=== PATIENT | male | born 1950 | race Caucasian/White ===

== ENCOUNTER 2016-11-28 10:22 | Emergency (ER) | payer BC, MEDICARE, OTHER ==
--- OUTSIDE RECORDS SUMMARY | 2016-11-28 11:00 | XMS REPORT | Continuity of Care Document ---
:1950 Author Organization [facility] ([facility]) Address [address] [place] [address] Phone [phone] Care Team Providers Name Role Phone Provider, No-Primary Care Primary Care Provider Unavailable Source Comments This disclosure is being made pursuant to the Care Everywhere program, applicable federal and state laws, and may not contain all informaitonavailable regarding this patient.[facility] ([facility]) Active Allergies and Adverse Reactions Not on File Current Medications Not on file Active Problems Not on file Social History Tobacco Use Types Packs/Day Years Used Date Never Assessed Plan of Care Health Maintenance Due Date Last Done Comments HCV Screening 1950 Hepatitis B Vaccine (1 of 3 - Primary Series) 1950 Tdap Vaccine 1960 Lipid Disorder Screening 1967 Td Vaccine 1967 Colonoscopy 1999 Prostate Cancer Screening 1999 Zoster Vaccine 2009 Pneumococcal Vaccine (1 of 2 - PCV13) 2014 Influenza Vaccine: Seasonal (#1) 04/23/2016 Results from Last 3 Months Not on file
--- NOTE | 2016-11-28 11:20 | ERNOTE ---
Upper Extremity HPI - Narrative Date of Service: 11/28/16 - General Extremities Pain Location: shoulder: right, elbow: right, hand: right Time Seen by Provider: 11/28/16 10:44 Source: patient Exam Limitations: no limitations - Immun/Allergies/Home Medications Immunizations: IMMUNIZATION HX Immunizations Up to Date Yes Allergies/Adverse Reactions: Allergies Allergy/AdvReac Type Severity Reaction Status Date / Time No Known Allergies Allergy Verified 11/28/16 10:37 Home Medications: HOME MEDICATIONS [place]-3 Fatty Acids [Fish Oil] 1,000 mg PO DAILY 08/30/12 [Last Taken Unknown] Tiotropium [place] [Spiriva] 1 cap IH DAILY 08/30/12 [Last Taken Unknown] Warfarin Sodium [Coumadin] 2.5 mg PO DAILY 08/30/12 [Last Taken 05/16/16] Albuterol Sulfate [Proair Hfa] 2 puff IH Q4H PRN 05/03/14 [Last Taken Unknown] Metoprolol Tartrate [Lopressor] 150 mg PO BID 06/26/14 [Last Taken 05/21/16 07: 00] Acetaminophen [Tylenol] 500 - 1,000 mg PO Q6H PRN 05/11/16 [Last Taken Unknown] Fexofenadine HCl [Dania Allergy] 180 mg PO DAILY 05/11/16 [Last Taken Unknown] Fluticasone Propionate [Flonase Allergy Relief] 1 puff NS DAILY 05/11/16 [Last Taken Unknown] Furosemide [Lasix] 40 mg PO BID 05/11/16 [Last Taken Unknown] Multivitamins [Multivitamin Jennifer] 1 cap PO DAILY 05/11/16 [Last Taken Unknown] oxyCODONE HCL/ACETAMINOPHEN [Percocet 5 MG/325 MG] 1 - 2 tab PO Q4H PRN #30 tab 05/21/16 [Last Taken Unknown] Prednisone [Deltasone] 20 mg PO BID #10 tablet 11/28/16 [Last Taken Unknown] traMADol HCL [Ultram] 50 mg PO QID PRN #20 tablet 11/28/16 [Last Taken Unknown] - History of Present Illness Narrative: Miguel presents with a host of problems most of them are chronic in nature. He has recently been seen by his physician and complains of pain in his right hand , right elbow, right shoulder and both knees. Most of these joints he receives injections in do is just frustrated with the inability to get a handle on the pain. He is worried that the chronic pain in his right arm is from his heart. Occurred: other - chronic Severity: moderate Method of Injury: Reports: no apparent injury Other Injuries: Reports: none Prior Treament: Reports: recently seen Review of Systems - Review of Systems Constitutional: Present: See HPI EYE: Present: no symptoms reported ENT: Present: no symptoms reported Respiratory: Present: no symptoms reported Cardiology: Present: no symptoms reported Gastrointestinal/Abdominal: Present: no symptoms reported Genitourinary: Present: no symptoms reported Musculoskeletal: Present: See HPI, joint pain Skin: Present: no symptoms reported Neurological: Present: no symptoms reported Endocrine: Present: no symptoms reported Hematologic/Lymphatic: Present: no symptoms reported Psych: Present: no symptoms reported - Patient's Past Medical History Patient History - Medical: No pertinent hx, Other Patient History - Cardiac/Respiratory: Atrial Fibrillation, COPD, Hypertension, Hyperlipidemia Patient History - Cancer: No Hx of Cancer Patient History - Surgical Procedures: No surgical history, T & A, Other Patient History - Other: None - Family History Father Family History - Medical: , No pertinent hx Family History - Cardiac/Respiratory: Coronary Heart Disease, Myocardial Infarction Mother Family History - Medical: , No pertinent hx Family History - Cardiac/Respiratory: No pertinent hx - Social History Living Situations: home Abuse History: No History of abuse Psych History: No pertinent hx Smoking Status: Current every day smoker Alcohol Use: none Drug Use: none - Immunizations Immunizations Up to Date: Yes Physical Exam - Physical Exam General Appearance: Present: wd/wn, alert, moderate distress Eye Exam: Normal inspection: bilateral, PERRL: bilateral Ears, Nose, Throat: Present: normal ENT inspection, H, normal pharynx Neck: Present: normal inspection, nontender Respiratory: Present: no respiratory distress, normal breath sounds, no accessory muscle use, chest nontender, lungs clear Cardiovascular/Chest: Present: regular rate, rhythm, no murmur, normal peripheral pulses Gastrointestinal/Abdominal: Present: normal bowel sounds, nontender, nondistended, soft, no organomegaly Rectal Exam: Present: deferred Back Exam: Present: normal inspection, normal range of motion Extremity Exam: Present: no edema, decreased range of motion, other - generalized joint tenderness Neurological Exam: Present: alert, oriented, normal mood/affect Skin Exam: Present: normal color, warm/dry Lymphatic Exam: Present: no adenopathy ED Progress - Results and Orders Patient's Lab Results:: I have reviewed the patient's lab results. - Vital Signs Patient's Vital Signs:: I have reviewed the patient's vital signs. Vital Signs: Vital Signs 11/28/16 10:31 Temperature 36.2 C L Pulse Rate 86 Respiratory 12 Rate Blood Pressure 172/96 O2 Sat by Pulse 93 Oximetry - EKG EKG: atrial fibrillation - X-Ray X-Ray #1 X-Ray: chest Interpretation: Reviewed by me X-Ray #2 X-Ray: hand Interpretation: Reviewed by me - Progress/Reassessment Chief Complaint: Upper Extremity Injury/Problem Progress:: Unchanged - Transfer of Care Expected Disposition: Discharge Plan - Plan Plan: Generalized be somewhat difficult to treat as chronic pain is always a difficult thing to manage. The fact that we have an elevated CRP and elevated sedimentation rate and I think we have entertained some Of the mixed connective tissue disease or possibly polymyalgia rheumatica. I have given him initial steroid dose of 60 mg by mouth we'll start 20 mg twice a day for 5 days. On follow up with Dr. Busby at that point to see whether chronic steroid use be applicable for him. Also start him on tramadol 50 mg 4 times a day for 5 days as well and see if this also buys him any relief from his chronic pain. Departure Clinical Impression: Chronic pain disorder - Departure Disposition: Home self-care Condition: Good Instructions: Chronic Pain Referrals: Cynthia Busby MD [Primary Care Provider] - Prescriptions: Prednisone [Deltasone] 20 mg PO BID #10 tablet traMADol HCL [Ultram] 50 mg PO QID PRN #20 tablet PRN Reason: Moderate Pain
[2016-11-28 11:26] LABS: Urine Bilirubin Negative (NEGATIVE); Urine Blood 50 /ul (NEGATIVE); Urine Ketone Negative (NEGATIVE); Urine Nitrite Negative (NEGATIVE); Urine Protein Negative (NEGATIVE); Urine Specific Gravity 1.015 SP.GR. (1.005-1.030); Urine Urobilinogen Normal (NORMAL)
[2016-11-28 11:33] LABS: Hematocrit 50.4 % (42.0-52.0); Hemoglobin 16.8 gm/dL (13.5-18.0); Mean Cell Volume 89.2 fl (78-100); Mean Corpuscular Hemoglobin 29.7 pg (27-31); Mean Corpuscular Hgb Conc 33.3 g/dl (32-36); Mean Platelet Volume 9.7 fl (6.0-9.5); Neutrophil # 6.9 K/mm3 (1.3-6.0); Neutrophil % 63.1 % (42-75.0); Platelet Count 263 K/mm3 (150-450); Red Blood Count 5.65 M/mm3 (4.7-6.0); Red Cell Distribution Width 14.3 % (11.5-14.0); White Blood Count 10.9 K/mm3 (4.0-10.5)
[2016-11-28 11:42] LABS: Prothrombin Time (Patient) 47.6 Seconds (9.4-11.4)
[2016-11-28 11:45] LABS: Urine Appearance Clear; Urine Bacteria TRACE; Urine Color Yellow; Urine RBC 0-5 /hpf (0-5); Urine WBC 0-5 /hpf (0-5)
[2016-11-28 11:55] LABS: ALT 22 U/L (19-67); AST 19 U/L (0-48); Albumin * 3.5 gm/dl (3.4-5.0); Alkaline Phosphatase * 124 U/L (50-170); BNP * 643 pg/mL (5-350); BUN/Creatinine Ratio 11.4 (9.0-21.6); Bilirubin, Total 1.2 mg/dL (0.0-1.1); Blood Urea Nitrogen 13 mg/dL (6-23); CRP 3.4 mg/dL (0.0-0.9); Ca. Corrected For Albumin 9.5 mg/dL (8.4-10.2); Calcium * 9.4 mg/dL (7.9-10.9); Carbon Dioxide 38.3 mmol/L (24-32.6); Chloride 101 mmol/L (97-106); Glucose * 89 mg/dL (70-110); Magnesium 1.7 mg/dL (1.2-2.8); Potassium 3.3 mmol/L (3.4-4.6); Sodium 145 mmol/L (132-142); Total Protein 8.1 gm/dL (6.2-8.2); Troponin I Less than 0.017 ng/ml (0.00-0.10)
[2016-11-28 12:00] LABS: INR 4.58 INR (0.90-1.10)
[2016-11-28] MEDS ORDERED: predniSONE 20 MG TABLET ONE (13:25)
[2016-11-28] MEDS: predniSONE 20 MG TABLET PO ONE (13:28)
[2016-11-28 13:51] VITALS: BP 122/79
== END 2016-11-28 13:30 | disposition home or self-care (01) ==
LOC: ER 10:22
DX: G89.4 Chronic pain syndrome (principal); M79.641 Pain in right hand; M25.521 Pain in right elbow; M25.511 Pain in right shoulder; M25.562 Pain in left knee; M25.561 Pain in right knee; F17.210 Nicotine dependence, cigarettes, uncomplicated

== ENCOUNTER 2017-02-27 07:54 | Emergency (ER) | payer BC, MEDICARE, OTHER ==
[2017-02-27 08:03] VITALS: BP 154/98
--- OUTSIDE RECORDS SUMMARY | 2017-02-27 08:22 | XMS REPORT | Continuity of Care Document ---
:1950 Author Organization [facility] ([facility]) Address [address] [place] [address] Phone [phone] Care Team Providers Name Role Phone Provider, No-Primary Care Primary Care Provider Unavailable Source Comments This disclosure is being made pursuant to the Care Everywhere program, applicable federal and state laws, and may not contain all informaitonavailable regarding this patient.[facility] ([facility]) Active Allergies and Adverse Reactions Not on [...]
--- NOTE | 2017-02-27 08:37 | ERNOTE ---
ENT HPI Presenting Symptoms: other Time Seen by Provider: 02/27/17 08:12 Source: patient Exam Limitations: no limitations - Immun/Allergies/Home Medications Immunizations: IMMUNIZATION HX Immunizations Up to Date Yes History of Influenza Vaccine No Hx Pneumococcal Vaccination No Allergies/Adverse Reactions: Allergies Allergy/AdvReac Type Severity Reaction Status Date / Time No Known Allergies Allergy Verified 02/27/17 08:03 Home Medications: HOME MEDICATIONS [place]-3 Fatty Acids [Fish Oil] 1,000 mg PO DAILY 08/30/12 [Last Taken Unknown] Tiotropium [place] [Spiriva] 1 cap IH DAILY 08/30/12 [Last Taken Unknown] Warfarin Sodium [Coumadin] 2.5 mg PO DAILY 08/30/12 [Last Taken 05/16/16] Albuterol Sulfate [Proair Hfa] 2 puff IH Q4H PRN 05/03/14 [Last Taken Unknown] Metoprolol Tartrate [Lopressor] 150 mg PO BID 06/26/14 [Last Taken 05/21/16 07: 00] Acetaminophen [Tylenol] 500 - 1,000 mg PO Q6H PRN 05/11/16 [Last Taken Unknown] Fexofenadine HCl [Dania Allergy] 180 mg PO DAILY 05/11/16 [Last Taken Unknown] Fluticasone Propionate [Flonase Allergy Relief] 1 puff NS DAILY 05/11/16 [Last Taken Unknown] Furosemide [Lasix] 40 mg PO BID 05/11/16 [Last Taken Unknown] Multivitamins [Multivitamin Jennifer] 1 cap PO DAILY 05/11/16 [Last Taken Unknown] Bupropion HCl [Wellbutrin Sr] 150 mg PO DAILY 11/28/16 [Last Taken Unknown] buPROPion HCL [Wellbutrin XL] 150 mg PO DAILY 11/29/16 [Last Taken Unknown] - History of Present Illness Narrative: Patient started to have bleeding from his left ear yesterday afternoon. He is not aware of any injuries, did not scatch the ear. He denies any bleeding elsewhere. He is on coumadin for atrial fibrillation, had his INR checked yesterday and it was therapeutic, denies any other new symptoms Date (Duration): 02/26/17 ENT Location: Present: ear (L) Review of Systems - Review of Systems Constitutional: Absent: recent illness, fever ENT: Present: See HPI. Absent: ear discharge, sore throat Respiratory: Present: shortness of breath - at baseline, COPD. Absent: cough Cardiology: Absent: chest pain Gastrointestinal/Abdominal: Absent: nausea, vomiting, abdominal pain Genitourinary: Present: no symptoms reported. Absent: hematuria Neurological: Present: headache - slight. Absent: weakness, numbness Hematologic/Lymphatic: Absent: easy bruising, easy bleeding - Patient's Past Medical History Patient History - Medical: No pertinent hx Patient History - Cardiac/Respiratory: Atrial Fibrillation, COPD, Hypertension, Hyperlipidemia Patient History - Cancer: No Hx of Cancer Patient History - Surgical Procedures: No surgical history, T & A, Other Patient History - Other: None - Family History Father Family History - Medical: , No pertinent hx Family History - Cardiac/Respiratory: Coronary Heart Disease, Myocardial Infarction Mother Family History - Medical: , No pertinent hx Family History - Cardiac/Respiratory: No pertinent hx - Social History Living Situations: home Abuse History: No History of abuse Psych History: No pertinent hx Smoking Status: Current some day smoker Have you smoked in the past 12 months: Yes Alcohol Use: occasionally Drug Use: none - Immunizations Immunizations Up to Date: Yes Hx Pneumococcal Vaccination: No History of Influenza Vaccine: No Physical Exam - Physical Exam General Appearance: Present: wd/wn, alert, no apparent distress Ears, Nose, Throat: Present: normal except - - left ear drum normal, small amout of fresh blood in ear canal, pooling on outside, normal pharynx Respiratory: Present: no respiratory distress, lungs clear Cardiovascular/Chest: Present: regular rate, rhythm, no murmur Neurological Exam: Present: alert, oriented, normal mood/affect ED Progress - Vital Signs Patient's Vital Signs:: I have reviewed the patient's vital signs. Vital Signs: Vital Signs 02/27/17 07:59 Temperature 36.0 C L Pulse Rate 70 Respiratory 16 Rate Blood Pressure 154/98 O2 Sat by Pulse 95 Oximetry - Progress/Reassessment Chief Complaint: Earache Progress Note-Subjective: 02/27/17 08:20 fresh blood gently removed with Qtip, silvernitrate applied, no active bleeding at this point patient was instructed to call ENT if bleeding restarts Departure Clinical Impression: Bleeding from left ear, Anticoagulant long-term use - Departure Disposition: Home self-care Condition: Good Instructions: Warfarin Coagulopathy Additional Instructions: if the bleeding starts up again call Dr Marie's office do not put ANYTHING in your ear for the next couple of weeks Referrals: Cynthia Busby MD [Primary Care Provider] - Satya Marie MD [Courtesy Staff] -
== END 2017-02-27 08:36 | disposition home or self-care (01) ==
LOC: ER 07:54
DX: H92.22 Otorrhagia, left ear (principal); Z79.01 Long term (current) use of anticoagulants; Z72.0 Tobacco use; I48.91 Unspecified atrial fibrillation; J44.9 Chronic obstructive pulmonary disease, unspecified; I10 Essential (primary) hypertension; E78.5 Hyperlipidemia, unspecified

== ENCOUNTER 2018-12-09 16:04 | Observation (INO) ==
[2018-12-09 16:34] LABS: Hematocrit 36.1 % (42.0-52.0); Hemoglobin 11.2 gm/dL (13.5-18.0); Mean Cell Volume 103.4 fl (78-100); Mean Corpuscular Hemoglobin 32.1 pg (27-31); Mean Platelet Volume 9.5 fl (8-11.3); Neutrophil # 4.8 K/mm3 (1.3-6.0); Neutrophil % 67.6 % (42-75.0); Platelet Count 256 K/mm3 (150-450); Red Blood Count 3.49 M/mm3 (4.7-6.0); Red Cell Distribution Width 15.1 % (11.5-14.0)
[2018-12-09] MEDS ORDERED: NORMAL SALINE 1,000 ML IV ONE (16:39)
[2018-12-09] MEDS ORDERED: HYDROmorphone HCL 1 MG/ML DISP.SYRIN IV ONE ×2 (16:39→18:09)
[2018-12-09] MEDS ORDERED: ALBUTEROL SULFATE/IPRATROPIUM 3 ML NEBU IH ONE (16:39)
[2018-12-09 16:56] LABS: Troponin I Less than 0.017 ng/mL (0.00-0.10)
[2018-12-09 17:04] LABS: Albumin * 2.4 gm/dl (3.4-5.0); Anion Gap 7.4 mmol/L (6.8-13.8); BUN/Creatinine Ratio 12.8 (9.0-21.6); Bilirubin, Total 0.5 mg/dL (0.0-1.1); Carbon Dioxide 39.5 mmol/L (24-32.6); Potassium 2.9 mmol/L (3.4-4.6); Total Protein 6.7 gm/dL (6.2-8.2)
[2018-12-09 17:07] LABS: BNP * 1142 pg/mL (5-350); T4 Free * 1.51 ng/dL (0.76-1.46); TSH * 0.064 uIU/mL (0.358-3.74)
[2018-12-09] MEDS ORDERED: FUROSEMIDE 10 MG/ML VIAL IV ONE (17:34)
[2018-12-09] MEDS ORDERED: POTASSIUM CHLORIDE IN WATER 100 ML IV ONE (18:31)
--- NOTE | 2018-12-09 18:42 | ERNOTE ---
Date of Service: 12/09/18 Time Seen by Provider: 12/09/18 16:19 Stated Complaint: sob Presenting Symptoms:: cough, other - SOB, weakness Source: patient Exam Limitations: no limitations Immunizations: IMMUNIZATION HX Immunizations Up to Date Yes History of Influenza Vaccine No Hx Pneumococcal Vaccination No Allergies/Adverse Reactions: Allergies No Known Allergies Allergy (Verified 12/09/18 16:16) Home Medications: HOME MEDICATIONS [place]-3 Fatty Acids [Fish Oil] 1,000 mg PO DAILY 08/30/12 [Last Taken Unknown] Tiotropium [place] [Spiriva] 1 cap IH DAILY 08/30/12 [Last Taken Unknown] Acetaminophen [Tylenol] 500 - 1,000 mg PO Q6H PRN 05/11/16 [Last Taken Unknown] buPROPion HCL [Wellbutrin XL] 150 mg PO DAILY 11/29/16 [Last Taken Unknown] Fluticasone/Salmeterol [Advair 100-50 Diskus] 1 puff IH BID 05/03/17 [Last Taken Unknown] fexofenadine 180 mg tablet 180 mg PO DAILY 05/05/18 [Last Taken Unknown] multivitamin tablet 1 tab PO DAILY 05/05/18 [Last Taken Unknown] ipratropium-albuterol 0.5 mg-3 mg(2.5 mg base)/3 mL nebulization soln 3 ml IH BID #90 ml 08/05/18 [Last Taken Unknown] albuterol sulfate HFA 90 mcg/actuation aerosol inhaler 2 puff IH .Q4-6H PRN #18 g 10/17/18 [Last Taken Unknown] azithromycin 250 mg tablet 250 mg PO QMWF #36 tab 11/19/18 [Last Taken Unknown] fluticasone 50 mcg/actuation nasal spray,suspension 1 spray TAINA BID PRN #19.8 g 12/04/18 [Last Taken Unknown] hydrocodone 5 mg-acetaminophen 325 mg tablet 1 tab PO Q6H 14 Days #56 tab 12/04/18 [Last Taken Unknown] Metoprolol Tartrate [Lopressor] 100 mg PO BID 12/09/18 [Last Taken Unknown] apixaban 5 mg tablet 5 mg PO BID #60 tab 12/09/18 [Last Taken Unknown] - History of Present Ilness Narrative: Patient presents to the ED for SOB, weakness, not eating, cough, failing at home. He relates that he has been gradually declining at home but this has accelerate. he had to have his oxygen turned all the way up last night at times because of his SOB. he has severe and unrelenting difuse body pain that his pain medications do not help. No fever. Cough, thick white sputum. Timing: constant, getting worse Severity: severe Modifying Factors - Improves: Reports: nothing Modifying Factors - Worsens: Reports: other - exertion Associated Symptoms: Reports: cough, shortness of breath, muscle aches Prior Treatment: Denies: recently hospitalized Review of Systems - Review of Systems Constitutional: Absent: fever ENT: Absent: sore throat Respiratory: Present: shortness of breath, cough Cardiology: Absent: chest pain Gastrointestinal/Abdominal: Present: eating less, drinking less. 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) Onset Date: ~07/25/18 A-fib (Chronic) Pulmonary emphysema (Chronic) Afib (Chronic) COPD (chronic obstructive pulmonary disease) (Chronic) Hyperlipidemia (Chronic) Anxiety and depression (Chronic) Atrial fibrillation Onset Date: Unknown COPD (chronic obstructive pulmonary disease) Onset Date: Unknown DJD (degenerative joint disease) of knee Onset Date: 12/19/12 Bilateral Erectile dysfunction Onset Date: Unknown Hyperlipidemia Onset Date: Unknown Osteoarthritis Onset Date: Unknown Surgical History: Surgical History (Last Reviewed 12/09/18 @ 18:37 by Corey Vazquez MD) H/O arthroscopic knee surgery Onset Date: 05/14/14 05/14/14[place] 05/30/[id number] medial meniscectomy H/O inguinal hernia repair Onset Date: 05/21/16 Acostaan-left w/Bard mesh plug and patch History of surgical removal of skin lesion Onset Date: Unknown [id number] History of tonsillectomy Onset Date: ~1959 Normal colonoscopy Onset Date: 01/29/05 [facility] Family History: Family History (Last Reviewed 12/09/18 @ 18:37 by Corey Vazquez MD) Brother Myocardial infarction, Onset Age: 50 Father Myocardial infarction, Onset Age: 74 Heart disease CAD Mother Cancer Leukemia Social History: Preferred Language Romansh Do you have any evangelical or No cultural preference? Smoking Status Current every day smoker Abuse History No History of abuse Psych History No pertinent hx (Last Reviewed 12/04/18 @ 15:27 by Kerrie Salinas RN) No Social History Section defined Physical Exam - Physical Exam General Appearance: Present: alert, no apparent distress, other - chronically ill appearing. Head Exam: Present: normal inspection, no evidence of injury Eye Exam: Normal inspection: bilateral, PERRL: bilateral Ears, Nose, Throat: Present: dry mucous membranes Neck: Present: normal inspection Respiratory: Present: no respiratory distress, no accessory muscle use, lungs clear, other - he gets very SOB and desats with even mild exertion Cardiovascular/Chest: Present: irregularly irregular Gastrointestinal/Abdominal: Present: normal bowel sounds, nontender, soft Back Exam: Absent: CVA tenderness (R), CVA tenderness (L) Extremity Exam: Present: other - noDVT findings Neurological Exam: Present: alert, other - generalized weakness, no acute unilateral focal motor or sensory deficits Skin Exam: Present: normal color, warm/dry Progress - Results and Orders Patient's Lab Results:: I have reviewed the patient's lab results. - Vital Signs Patient's Vital Signs:: I have reviewed the patient's vital signs. Vital Signs: Vital Signs 12/09/18 16:10 12/09/18 16:21 12/09/18 16:44 Temperature 36.4 C Pulse Rate 94 94 91 Respiratory Rate 17 23 H 22 H Blood Pressure 94/51 107/50 O2 Sat by Pulse Oximetry 88 L 94 96 12/09/18 17:11 12/09/18 17:16 12/09/18 17:26 Temperature Pulse Rate 87 87 82 Respiratory Rate 25 H 12 18 Blood Pressure 100/61 O2 Sat by Pulse Oximetry 93 90 L 12/09/18 17:44 12/09/18 18:05 Temperature Pulse Rate 95 96 Respiratory Rate 13 15 Blood Pressure 114/68 117/65 O2 Sat by Pulse Oximetry 96 92 L - EKG EKG #1 EKG: atrial fibrillation EKG read: Interp. by me EKG Comments: A fib rate 88. Non-specific ST/T wave changes, no STEMI noted. - X-Ray X-Ray #1 X-Ray: chest Interpretation: Interp. by me X-ray Comments: I reviewed official radiology report. - Progress/Reassessment Chief Complaint: Upper Respiratory Symptoms Progress Note-Subjective: 12/09/18 18:40 IV potassium given for his hypokalemia. OV lasix given for elevated bnp. He feels too weak to go home and is hypoxic with any exertion. D/W Dr Colindres who saw the patient in the ED for admission. Departure Clinical Impression: FTT (failure to thrive) in adult, Intractable pain, Hypokalemia, Generalized weakness - Departure Disposition: Still a patient Condition: Fair
--- NOTE | 2018-12-09 18:45 | HP ---
Chief Complaint - Chief Complaint Date of Service: 12/09/18 Time of Service: 18:30 Chief Complaint: Shortness of breath, poor oral intake and generalized body pain. 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 His stepdaughter is at bedside and states that for the past several weeks his symptoms have continued to progress and today he was having a lot of difficulty breathing. He is on home oxygen and the oxygen was turned all the way up but his breathing does not improve. Therefore she brought him into the emergency department. In the ER he is found to have hypokalemia, elevated BMP, mild anemia and hypoxia on room air. He is being admitted for observation. Family states his PCP Dr. Busby has mentioned that he may benefit from a feeding tube. They are now considering it. Medical History (Last Reviewed 12/09/18 @ 18:37 by Corey Vazquez MD) Hypertension (Chronic) 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) Onset Date: ~07/25/18 A-fib (Chronic) Pulmonary emphysema (Chronic) Afib (Chronic) COPD (chronic obstructive pulmonary disease) (Chronic) Hyperlipidemia (Chronic) Anxiety and depression (Chronic) Atrial fibrillation Onset Date: Unknown COPD (chronic obstructive pulmonary disease) Onset Date: Unknown DJD (degenerative joint disease) of knee Onset Date: 12/19/12 Bilateral Erectile dysfunction Onset Date: Unknown Hyperlipidemia Onset Date: Unknown Osteoarthritis Onset Date: Unknown Surgical History: Surgical History (Last Reviewed 12/09/18 @ 18:37 by Corey Vazquez MD) H/O arthroscopic knee surgery Onset Date: 05/14/14 05/14/14-[place] 05/30/[id number] medial meniscectomy H/O inguinal hernia repair Onset Date: 05/21/16 James-left w/Bard mesh plug and patch History of surgical removal of skin lesion Onset Date: Unknown [id number] History of tonsillectomy Onset Date: ~1959 Normal [facility] Family History: Family History (Last Reviewed 12/09/18 @ 18:37 by Corey Vazquez MD) Brother Myocardial infarction, Onset Age: 50 Father Myocardial infarction, Onset Age: 74 Heart disease CAD Mother Cancer Leukemia Social History: Preferred Language [place] Do you have any orthodox or No cultural preference? Smoking Status Current every day smoker Abuse History No History of abuse Psych History No pertinent hx (Last Reviewed 12/04/18 @ 15:27 by Kerrie Salinas RN) No Social History Section defined Review Of Systems (GEN) - Review of Systems Generalized/Overall Review: Present: Weakness, Malaise, Fatigue, Weight loss. Absent: Chills, Fever Abdominal: Present: Nausea, Vomiting Musculoskeletal: Present: Joint Pain, Muscle Pain Misc: All systems neg except as marked Immunizations: IMMUNIZATION HX Immunizations Up to Date Yes History of Influenza Vaccine No Hx Pneumococcal Vaccination No Allergies/Adverse Reactions: Allergies Allergy/AdvReac Type Severity Reaction Status Date / Time No Known Allergies Allergy Verified 12/09/18 16:16 Home Medications: HOME MEDICATIONS [place]-3 Fatty Acids [Fish Oil] 1,000 mg PO DAILY 08/30/12 [Last Taken Unknown] Tiotropium Gravity [Spiriva] 1 cap IH DAILY 08/30/12 [Last Taken Unknown] Acetaminophen [Tylenol] 500 - 1,000 mg PO Q6H PRN 05/11/16 [Last Taken Unknown] buPROPion HCL [Wellbutrin XL] 150 mg PO DAILY 11/29/16 [Last Taken Unknown] Fluticasone/Salmeterol [Advair 100-50 Diskus] 1 puff IH BID 05/03/17 [Last Taken Unknown] fexofenadine 180 mg tablet 180 mg PO DAILY 05/05/18 [Last Taken Unknown] multivitamin tablet 1 tab PO DAILY 05/05/18 [Last Taken Unknown] ipratropium-albuterol 0.5 mg-3 mg(2.5 mg base)/3 mL nebulization soln 3 ml IH BID #90 ml 08/05/18 [Last Taken Unknown] albuterol sulfate HFA 90 mcg/actuation aerosol inhaler 2 puff IH .Q4-6H PRN #18 g 10/17/18 [Last Taken Unknown] azithromycin 250 mg tablet 250 mg PO QMWF #36 tab 11/19/18 [Last Taken Unknown] fluticasone 50 mcg/actuation nasal spray,suspension 1 spray TAINA BID PRN #19.8 g 12/04/18 [Last Taken Unknown] hydrocodone 5 mg-acetaminophen 325 mg tablet 1 tab PO Q6H 14 Days #56 tab 12/04/18 [Last Taken Unknown] Metoprolol Tartrate [Lopressor] 100 mg PO BID 12/09/18 [Last Taken Unknown] apixaban 5 mg tablet 5 mg PO BID #60 tab 12/09/18 [Last Taken Unknown] Exam - Exam Vital Signs: Vital Signs - Last Taken Temp 36.4 C 12/09/18 16:10 Pulse 90 12/09/18 18:36 Resp 18 12/09/18 18:36 BP 113/77 12/09/18 18:36 Pulse Ox 96 12/09/18 18:36 Constitutional: Present: Alert, Cooperative, No distress, Looks Older than stated age ENT Exam: Present: hearing grossly normal, moist mucous membranes Eye Exam: bilateral eye: normal inspection, PERRL Neck: Present: supple, trachea midline. Absent: lymphadenopathy (R), lymphadenopathy (L) Respiratory: Present: decreased breath sounds, crackles - Mild in bilateral bases, No wheezing Cardiovascular/Chest: Present: normal peripheral pulses, regular rate, rhythm, no edema Peripheral Pulses: dorsalis-pedis (R): 1+, dorsalis-pedis (L): 1+ Abdomen: Present: Normal bowel sounds, soft, nontender Extremity: Present: no pedal edema Skin Exam: Present: normal color, warm/dry Neurologic: Present: normal mood/affect Eye contact: Present: cooperative, good eye contact Thoughts: Present: normal thought pattern, normal mood /affect Diagnostic Studies: Abnormal Lab Results 12/09/18 12/09/18 12/09/18 Range/Units 16:30 16:30 16:30 RBC 3.49 L (4.7-6.0) M/mm3 Hgb 11.2 L (13.5-18.0) gm/dL Hct 36.1 L (42.0-52.0) % MCV 103.4 H (78-100) fl MCH 32.1 H (27-31) pg MCHC 31.0 L (32-36) g/dl RDW 15.1 H (11.5-14.0) % Lymphocytes % 15.6 L (20-51) % Eosinophils % 7.5 H (0.0-3.0) % Lymphocytes # 1.10 L (1.5-3.5) k/mm3 Plasma Sodium 143 H (130-142) mmol/L Potassium 2.9 L (3.4-4.6) mmol/L Carbon Dioxide 39.5 H (24-32.6) mmol/L Creatinine 1.49 H D (0.4-1.4) mg/dL Est GFR (Non-Af Amer) 50 L D (60-130) mL/min Random Glucose 143 H (70-110) mg/dL ALT 9 L (19-67) U/L B-Natriuretic Peptide 1142 H (5-350) pg/mL Albumin 2.4 L (3.4-5.0) gm/dl TSH 0.064 L (0.358-3.74) uIU/mL Free T4 1.51 H (0.76-1.46) ng/dL Laboratory Results WBC 7.0 K/mm3 (4.0-10.5) 12/09/18 16:30 RBC 3.49 M/mm3 (4.7-6.0) L 12/09/18 16:30 Hgb 11.2 gm/dL (13.5-18.0) L 12/09/18 16:30 Hct 36.1 % (42.0-52.0) L 12/09/18 16:30 MCV 103.4 fl (78-100) H 12/09/18 16:30 MCH 32.1 pg (27-31) H 12/09/18 16:30 MCHC 31.0 g/dl (32-36) L 12/09/18 16:30 RDW 15.1 % (11.5-14.0) H 12/09/18 16:30 Plt Count 256 K/mm3 (150-450) 12/09/18 16:30 MPV 9.5 fl (8-11.3) 12/09/18 16:30 Immature Gran % (Auto) 0.30 % (0.001-0.429) 12/09/18 16:30 Immature Gran # (Auto) 0.02 K/mm3 (0.000-0.0310) 12/09/18 16:30 Neutrophils % 67.6 % (42-75.0) 12/09/18 16:30 Lymphocytes % 15.6 % (20-51) L 12/09/18 16:30 Monocytes % 8.4 % (0.0-9) 12/09/18 16:30 Eosinophils % 7.5 % (0.0-3.0) H 12/09/18 16:30 Basophils % 0.6 % (0.0-1.0) 12/09/18 16:30 Nucleated RBC % 0.0 k/mm3 (0-1) 12/09/18 16:30 Neutrophils # 4.8 K/mm3 (1.3-6.0) 12/09/18 16:30 Lymphocytes # 1.10 k/mm3 (1.5-3.5) L 12/09/18 16:30 Monocytes # 0.6 k/mm3 (0.0-1.0) 12/09/18 16:30 Eosinophils # 0.5 k/mm3 (0.0-0.7) 12/09/18 16:30 Absolute Basophils 0.0 k/mm3 (0.0-0.1) 12/09/18 16:30 Sodium 142 mmol/L (132-142) 12/09/18 16:30 Plasma Sodium 143 mmol/L (130-142) H 12/09/18 16:30 Potassium 2.9 mmol/L (3.4-4.6) L 12/09/18 16:30 Chloride 98 mmol/L (97-106) 12/09/18 16:30 Carbon Dioxide 39.5 mmol/L (24-32.6) H 12/09/18 16:30 Anion Gap 7.4 mmol/L (6.8-13.8) 12/09/18 16:30 BUN 19 mg/dL (6-23) 12/09/18 16:30 Creatinine 1.49 mg/dL (0.4-1.4) H D 12/09/18 16:30 Est GFR (Non-Af Amer) 50 mL/min (60-130) L D 12/09/18 16:30 BUN/Creatinine Ratio 12.8 (9.0-21.6) 12/09/18 16:30 Random Glucose 143 mg/dL (70-110) H 12/09/18 16:30 Calcium 9.0 mg/dL (7.9-10.9) 12/09/18 16:30 Calcium Adj for Albumin 10.0 mg/dL (8.4-10.2) 12/09/18 16:30 Total Bilirubin 0.5 mg/dL (0.0-1.1) 12/09/18 16:30 AST 15 U/L (0-48) 12/09/18 16:30 ALT 9 U/L (19-67) L 12/09/18 16:30 Alkaline Phosphatase 116 U/L (50-170) 12/09/18 16:30 Troponin I Less than 0.017 ng/mL (0.00-0.10) 12/09/18 16:30 B-Natriuretic Peptide 1142 pg/mL (5-350) H 12/09/18 16:30 Total Protein 6.7 gm/dL (6.2-8.2) 12/09/18 16:30 Albumin 2.4 gm/dl (3.4-5.0) L 12/09/18 16:30 TSH 0.064 uIU/mL (0.358-3.74) L 12/09/18 16:30 Free T4 1.51 ng/dL (0.76-1.46) H 12/09/18 16:30 Influenza Type A Ag Negative (NEGATIVE) 12/09/18 16:44 Influenza Type B Ag Negative (NEGATIVE) 12/09/18 16:44 Group A Strep Rapid Negative (NEGATIVE) 12/09/18 16:25 Assessment/Plan - Narrative Narrative: 68-year-old male with a past medical history of atrial fibrillation, anxiety, depression, COPD, 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 In the ER he is found to have hypokalemia, elevated BMP, mild anemia and hypoxia on room air. He is being admitted for observation. - Assessment/Plan (1) Failure to thrive in adult Assessment: Encourage oral intake. He will be seen by his primary care physician in the morning to assess whether or PEG tube is warranted. Problem: Acute (2) Hypokalemia Assessment: Replete as needed. Problem: Acute (3) Shortness of breath Assessment: Likely secondary to the lung cancer. Continue with oxygen supplementation as needed. Problem: Acute (4) Hypertension Assessment: Stable resume home medications as needed. Problem: Chronic Qualifiers: Hypertension type: essential hypertension Qualified Code(s): I10 - Ess ential (primary) hypertension (5) Squamous cell carcinoma of bronchus in left upper lobe Assessment: He is status post chemo and radiation in July 2018. States he has lost 30- 40 pounds since then. No acute intervention during this hospitalization. He will continue following with his oncologist. Problem: Chronic
[2018-12-09] MEDS ORDERED: FUROSEMIDE 10 MG/ML VIAL ONE (18:46)
[2018-12-09] MEDS: HYDROmorphone HCL 1 MG/ML DISP.SYRIN IV PRN (20:38)
[2018-12-09] MEDS: METOPROLOL TARTRATE 100 MG TABLET PO SCH (20:56)
[2018-12-09] MEDS: APIXABAN 5 MG TABLET PO SCH (20:56)
[2018-12-09] MEDS: ALBUTEROL SULFATE/IPRATROPIUM 3 ML NEBU IH SCH (21:02)
[2018-12-10] MEDS: HYDROmorphone HCL 1 MG/ML DISP.SYRIN IV PRN ×3 (02:27→11:31)
[2018-12-10 05:43] LABS: Hematocrit 34.7 % (42.0-52.0); Hemoglobin 10.5 gm/dL (13.5-18.0); Mean Cell Volume 105.2 fl (78-100); Mean Corpuscular Hemoglobin 31.8 pg (27-31); Mean Corpuscular Hgb Conc 30.3 g/dl (32-36); Mean Platelet Volume 9.5 fl (8-11.3); Neutrophil # 4.9 K/mm3 (1.3-6.0); Platelet Count 244 K/mm3 (150-450); White Blood Count 7.1 K/mm3 (4.0-10.5)
[2018-12-10 05:47] LABS: Albumin * 2.2 gm/dl (3.4-5.0); Anion Gap 6.1 mmol/L (6.8-13.8); BUN/Creatinine Ratio 14.4 (9.0-21.6); Bilirubin, Total 0.5 mg/dL (0.0-1.1); Ca. Corrected For Albumin 9.8 mg/dL (8.4-10.2); Calcium * 8.7 mg/dL (7.9-10.9); Carbon Dioxide 38.9 mmol/L (24-32.6); Total Protein 6.4 gm/dL (6.2-8.2)
[2018-12-10] MEDS: ALBUTEROL SULFATE/IPRATROPIUM 3 ML NEBU IH SCH (06:11)
[2018-12-10] MEDS: APIXABAN 5 MG TABLET PO SCH (08:58)
[2018-12-10] MEDS: METOPROLOL TARTRATE 100 MG TABLET PO SCH (08:59)
[2018-12-10] MEDS ORDERED: AZITHROMYCIN 250 MG TABLET PO SCH (09:00)
[2018-12-10] MEDS ORDERED: TIOTROPIUM BROMIDE 5 CAP INHALER IH SCH (09:00)
[2018-12-10] MEDS ORDERED: buPROPion HCL 150 MG TABLET.SA PO SCH (09:00)
[2018-12-10] MEDS ORDERED: ONDANSETRON HCL/PF 2 MG/ML VIAL IV PRN (09:14)
[2018-12-10 09:15] LABS: CRP 5.7 mg/dL (0.0-0.9)
[2018-12-10] MEDS ORDERED: HYDROcodone/ACETAMINOPHEN 1 EACH TABLET PO PRN (09:18)
--- NOTE | 2018-12-10 09:21 | PN ---
Progess Note - Interim Date: 12/10/18 Time: 09: Narrative: 12/10/18 09:19 Complaining if diffuse muscle/jt pain and was told before by his cancer doctor that this was not due to his cancer. will do CK, ESR, CRP as he does complain of proxumal muscle weakness/pain. His MALDONADO uptake scan is not until December 29 for his elevated TSH, FT4 due to contrast studies recently. Travis talk to Endocrinology in [facility] about startin [id number] before the result of his MALDONADO iodide uptake scan. Also complains of weight loss and does not have any taste for food. We talked about Megace and Dronabirol ( Marinol). If his ESR is high will try him on Prednisone PO for possible PMR. 12/10/18 10:[address] Luu , Endocrinology in [facility]- would not recommend starting methimazole until MALDONADO uptake scan is done. His FT4 is not really that high unless it hits the 3.2-4.5 and he is really symptomatic. Diffuse muscleachesand joint pains while might be due to hyperthyroidism it is very nonspecific. Recommend doing TSI. Discussed wtih Dr. Curtis- oncologist, [facility]- has not seen pacltaxel do mylagia /arthralgia this far out from the treatment. no problem with me trying high dose prednisone with is CTX and in fact might help with the some of the autotimmine AE. 12/10/18 12:36
[2018-12-10] MEDS ORDERED: POTASSIUM CHLORIDE 20 MEQ TABLET.SA PO SCH (09:30)
[2018-12-10 09:38] LABS: Vitamin B12 491 pg/mL (193-986)
[2018-12-10] MEDS ORDERED: predniSONE 20 MG TABLET PO SCH (10:45)
--- NOTE | 2018-12-10 13:03 | DS ---
(1) Acute bronchitis Problem: Acute Qualifiers: Bronchitis organism: unspecified organism Qualified Code(s): J20.9 - Acute bronchitis, unspecified (2) Arthralgia Problem: Acute Qualifiers: Joint pain location: unspecified Qualified Code(s): M25.50 - Pain in unspecified joint (3) Myalgia Problem: Acute (4) Generalized weakness Problem: Acute (5) Failure to thrive in adult Problem: Acute (6) Hypokalemia Problem: Acute (7) Afib Problem: Chronic Qualifiers: Atrial fibrillation type: chronic Qualified Code(s): I48.2 - Chronic atrial fibrillation (8) COPD (chronic obstructive pulmonary disease) Problem: Chronic Qualifiers: COPD type: emphysema Emphysema type: unspecified Qualified Code(s): J43.9 - Emphysema, unspecified (9) Squamous cell carcinoma of bronchus in left upper lobe Problem: Chronic (10) Hypertension Problem: Chronic Qualifiers: Hypertension type: essential hypertension Qualified Code(s): I10 - Essential (primary) hypertension Description of Stay: Taj Carter, is a 68-year-old male with a past medical history of atrial fibrillation, anxiety, depression, COPD, 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 His stepdaughter is at bedside and states that for the past several weeks his symptoms have continued to progress and today he was having a lot of difficulty breathing. He is on home oxygen and the oxygen was turned all the way up but his breathing does not improve. Therefore she brought him into the emergency department. In the ER he is found to have hypokalemia, elevated BNP, mild anemia and hypoxia on room air. He was admitted for observation and was started on IVF and IV dilaudid. His CXR showed no acute cardiopulmonary findings. He was started on breathing treamtnet, O2, and and Azithromycin . His ESR was 111 and his CRP was 5.7. His CK was normal. Since he was complaining of diffuse muscle weakness as well, we started on Prednisone for possible PMR. I discussed his case with Endocrinology in [facility], Dr. Luu, and he does not recommend starting him on Methimazole until after his MALDONADO uptake s can which will be on 12/29/2018. I discussed his case with Ever, his oncologist and he wants to see him and start on CTX and just monitor his TFT closely. Will discharge the patient today on Prednisone and marinol, his Anoro and proair, Azithromycin q daily for 5 days and then go back to [facility]. . He did not want to be on Remeron. The patient is homebound due to generalized weakness, diffuse myalgi as and athralgias . The need for residential is for medication set ups and monitoring, vital signs as well as bath aide. The need for PT is for strengthening exercies. The need for home health care skilled services is directly related to the time spent face to face with the person. . Procedures Performed: none Results and Findings: Lab Pending Results 12/09/18 16:25: Group A Strep Rapid Negative 12/09/18 16:30: WBC 7.0, RBC 3.49 L, Hgb 11.2 L, Hct 36.1 L, MCV 103.4 H, MCH 32.1 H, MCHC 31.0 L, RDW 15.1 H, Plt Count 256, MPV 9.5, Immature Gran % (Auto) 0.30, Immature Gran # (Auto) 0.02, Neutrophils % 67.6, Lymphocytes % 15.6 L, Monocytes % 8.4, Eosinophils % 7.5 H, Basophils % 0.6, Nucleated RBC % 0.0, Neutrophils # 4.8, Lymphocytes # 1.10 L, Monocytes # 0.6, Eosinophils # 0.5, Absolute Basophils 0.0 12/09/18 16:30: Sodium 142, Plasma Sodium 143 H, Potassium 2.9 L, Chloride 98, Carbon Dioxide 39.5 H, Anion Gap 7.4, BUN 19, Creatinine 1.49 H D, Est GFR (Non- Af Amer) 50 L D, BUN/Creatinine Ratio 12.8, Random Glucose 143 H, Calcium 9.0, Calcium Adj for Albumin 10.0, Total Bilirubin 0.5, AST 15, ALT 9 L, Alkaline Phosphatase 116, Total Protein 6.7, Albumin 2.4 L 12/09/18 16:30: Troponin I Less than 0.017, B-Natriuretic Peptide 1142 H, TSH 0.064 L, Free T4 1.51 H 12/09/18 16:44: Influenza Type A Ag Negative, Influenza Type B Ag Negative 12/10/18 05:25: WBC 7.1, RBC 3.30 L, Hgb 10.5 L, Hct 34.7 L, MCV 105.2 H, MCH 31.8 H, MCHC 30.3 L, RDW 15.0 H, Plt Count 244, MPV 9.5, Immature Gran % (Auto) 0.30, Immature Gran # (Auto) 0.02, Neutrophils % 68.0, Lymphocytes % 13.5 L, Monocytes % 9.6 H, Eosinophils % 8.0 H, Basophils % 0.6, Nucleated RBC % 0.0, Neutrophils # 4.9, Lymphocytes # 0.96 L, Monocytes # 0.7, Eosinophils # 0.6, Absolute Basophils 0.0 12/10/18 05:25: Sodium 142, Plasma Sodium 142, Potassium 3.0 L, Chloride 100, Carbon Dioxide 38.9 H, Anion Gap 6.1 L, BUN 15, Creatinine 1.04, Est GFR (Non-Af Amer) 75 D, BUN/Creatinine Ratio 14.4, Random Glucose 90 D, Calcium 8.7, Calcium Adj for Albumin 9.8, Total Bilirubin 0.5, AST 14, ALT 8 L, Alkaline Phosphatase 103, Total Protein 6.4, Albumin 2.2 L 12/10/18 05:25: ESR 111 H 12/10/18 05:25: Vitamin B12 491, Folate Greater than 20.0 12/10/18 05:25: Creatine Kinase 18, C-Reactive Prot, Quant 5.7 H Discharge Location: Home Disposition: Home Health Service Home Health Agency: [facility] Condition: Stable Discharge Activity: Partial-Weight bearing Discharge Diet: General/regular food Referrals: Cynthia Busby MD [Primary Care Provider] - Additional Patient Instructions (free text): -Please make TCM appointment unless assisted discharge. Thank you! Violeta @ ext:[phone]. [facility] new. Please call report and fax orders, facesheet and dc summary upon discharge. fax: [phone]. Call report to [phone]. Follow up with with PCP in [address] Curtis's office, Oncology, [facility] and find out when he wants to see the patient. Prescriptions (Any new or edited meds): Albuterol Sulfate/Ipratropium [Duoneb 2.5-0.5MG/3ML Soln] 3 ml INHALATION BID PRN #90 ml PRN Reason: Shortness Of Breath/Wheezing Azithromycin 250 mg PO DAILY #36 tab Dronabinol [Marinol] 2.5 mg PO BID #60 cap Ondansetron HCl [Zofran] 4 mg PO QID PRN #20 tab PRN Reason: Nausea And Vomiting Potassium Chloride [K-Dur] 40 meq PO DAILY #2 tablet.sa predniSONE [Prednisone] 20 mg PO DAILY #30 tab Complete Home Medications List: Complete Home Medication List: Acetaminophen [Tylenol] 500 - 1,000 mg PO Q6H PRN 05/11/16 buPROPion HCL [Wellbutrin Xl] 150 mg PO DAILY 11/29/16 fexofenadine 180 mg tablet 180 mg PO DAILY 05/05/18 multivitamin tablet 1 tab PO DAILY 05/05/18 albuterol sulfate HFA 90 mcg/actuation aerosol inhaler 2 puff IH .Q4-6H PRN #18 g 10/17/18 fluticasone 50 mcg/actuation nasal spray,suspension 1 spray TAINA BID PRN #19.8 g 12/04/18 hydrocodone 5 mg-acetaminophen 325 mg tablet 1 tab PO Q6H 14 Days #56 tab 12/04/18 Metoprolol Tartrate [Lopressor] 100 mg PO BID 12/09/18 apixaban 5 mg tablet 5 mg PO BID #60 tab 12/09/18 Albuterol Sulfate/Ipratropium [Duoneb 2.5-0.5MG/3ML Soln] 3 ml INHALATION BID PRN #90 ml 12/10/18 Azithromycin 250 mg PO DAILY #36 tab 12/10/18 Dronabinol [Marinol] 2.5 mg PO BID #60 cap 12/10/18 Ondansetron HCl [Zofran] 4 mg PO QID PRN #20 tab 12/10/18 Potassium Chloride [K-Dur] 40 meq PO DAILY #2 tablet.sa 12/10/18 Umeclidinium Brm/Vilanterol Tr [Anoro Ellipta 62.5-25 Mcg INH] 1 ea INHALATION DAILY 03/20/19 predniSONE [Prednisone] 20 mg PO DAILY #30 tab 12/10/18
[2018-12-10 13:21] VITALS: BP 106/51
== END 2018-12-10 13:35 | disposition home health service (06) ==
LOC: MS 16:04 → ER 16:04 → MS 18:31
PROVIDERS: ADMIT Internal Medicine; ATTEND Internal Medicine
CPT/HCPCS: 36415; 71020; 71046; 80053; 82550; 82607; 82746; 83519; 83880; 84439; 84443; 84445; 84484; 85025; 85652; 86140; 87040; 87081; 87400; 87430; 87449; 93005; 94640; 94664; 94760; 96361; 96365; 96375; 99285; G0378; J2405

== ENCOUNTER 2019-03-03 09:34 | Inpatient (IN) ==
[2019-03-03 10:51] LABS: Hematocrit 43.2 % (42.0-52.0); Hemoglobin 13.4 gm/dL (13.5-18.0); Mean Cell Volume 98.4 fl (78-100); Mean Corpuscular Hemoglobin 30.5 pg (27-31); Mean Platelet Volume 9.1 fl (8-11.3); Neutrophil # 11.8 K/mm3 (1.3-6.0); Neutrophil % 84.5 % (42-75.0); Platelet Count 232 K/mm3 (150-450); Red Blood Count 4.39 M/mm3 (4.7-6.0); Red Cell Distribution Width 16.7 % (11.5-14.0)
[2019-03-03 11:04] LABS: Albumin * 2.8 gm/dl (3.4-5.0); Anion Gap 6.5 mmol/L (6.8-13.8); BUN/Creatinine Ratio 26.4 (9.0-21.6); Bilirubin, Total 0.8 mg/dL (0.0-1.1); Ca. Corrected For Albumin 9.6 mg/dL (8.4-10.2); Carbon Dioxide 39.2 mmol/L (24-32.6); Potassium 3.7 mmol/L (3.4-4.6)
[2019-03-03 11:05] LABS: Troponin I 0.025 ng/mL (0.00-0.10)
--- NOTE | 2019-03-03 11:36 | PN ---
Progess Note - Interim Date: 03/03/19 Time: 11:32 Narrative: 03/03/19 11:32 I saw and examned this patient on the medsur floor on 03/03/2019 at 11:32 a.m. He admitted from my office for SOB/cough/hypoxia. He was recently diagnosed with Pneumonia with parapneumonic pleural effusion on 02/19/2019 but refused admission at that time. He was started on PO levaquin x 10 days and followed up today with no improvement. He agrees to be admitted this time. My clinic visit notes will serve as my H and P for this admission. His pulses were faint to absent due to the swelling of his feet but doppler showed positive flow both feet -[employer] pulses.
[2019-03-03] MEDS ORDERED: ONDANSETRON HCL 4 MG TABLET PO PRN (12:21)
[2019-03-03] MEDS ORDERED: FLUTICASONE PROPIONATE 120 SPRAY INHALER NS PRN (12:21)
[2019-03-03] MEDS: MEROPENEM 1 GM in NORMAL SALINE 100 ML IV SCH ×2 (12:21→23:54)
[2019-03-03] MEDS ORDERED: ALBUTEROL SULFATE/IPRATROPIUM 3 ML NEBU IH PRN (12:21)
[2019-03-03] MEDS: ACETAMINOPHEN 325 MG TABLET PO PRN (13:17)
[2019-03-03] MEDS: METHYLPREDNISOLONE SOD SUCC/PF 40 MG/ML VIAL IV SCH ×2 (13:18→19:27)
[2019-03-03] MEDS ORDERED: traMADol HCL 50 MG TABLET PO PRN (15:04)
[2019-03-03] MEDS ORDERED: FUROSEMIDE 40 MG TABLET PO ONE (17:07)
[2019-03-03] MEDS: GABAPENTIN 100 MG CAPSULE PO SCH (17:33)
[2019-03-03] MEDS: FORMOTEROL FUMARATE 20 MCG/2 ML VIAL IH SCH (18:13)
[2019-03-03] MEDS: ALBUTEROL SULFATE/IPRATROPIUM 3 ML NEBU IH PRN (18:15)
[2019-03-03] MEDS: METOPROLOL TARTRATE 100 MG TABLET PO SCH (21:46)
[2019-03-03] MEDS: APIXABAN 5 MG TABLET PO SCH (21:46)
[2019-03-03] MEDS: DRONABINOL 2.5 MG PO SCH (21:47)
[2019-03-04] MEDS: METHYLPREDNISOLONE SOD SUCC/PF 40 MG/ML VIAL IV SCH ×4 (00:32→20:15)
[2019-03-04] MEDS: GABAPENTIN 100 MG CAPSULE PO SCH ×3 (00:33→17:27)
[2019-03-04] MEDS: FORMOTEROL FUMARATE 20 MCG/2 ML VIAL IH SCH ×3 (06:03→20:18)
[2019-03-04] MEDS: ALBUTEROL SULFATE/IPRATROPIUM 3 ML NEBU IH PRN (06:03)
[2019-03-04] MEDS: DRONABINOL 2.5 MG PO SCH ×2 (08:01→20:18)
--- NOTE | 2019-03-04 08:30 | PN ---
Subjective - Date and Time Seen Date: 03/04/19 Time: 08:08 Subjective Narrative: afebrile. foot pain improved. SOB improved. Objective - Review of Systems Generalized/Overall Review: Denies: Chills, Fever EENTM: Denies: Blurred Vision Respiratory: Reports: Cough, Shortness of Breath. Denies: Orthopnea Cardiac: Reports: Edema. Denies: Chest Pain, Palpitations Abdominal: Denies: Nausea, Abdominal Pain Genitourinary Symptoms: Denies: Urgency, Frequency Musculoskeletal Complaints: Reports: Joint Pain, Other - foot pain Neurological: Denies: Headache Skin: Reports: Other - skin dscoloration. Denies: Lesions, Rash Endocrine: Denies: Intolerance to Cold, Intolerance to Heat Misc: All systems neg except as marked - Vitals Vitals: Last Vital Signs Temp 36.6 C 03/04/19 06:55 Pulse 78 03/04/19 06:55 Resp 24 H 03/04/19 06:55 BP 124/74 03/04/19 06:55 Pulse Ox 90 L 03/04/19 06:55 - Abnormal Lab Findings Abnormal Lab Findings: Abnormal Lab Results 03/03/19 03/03/19 03/03/19 Range/Units 10:05 10:05 10:50 WBC 14.0 H (4.0-10.5) K/mm3 RBC 4.39 L (4.7-6.0) M/mm3 Hgb 13.4 L (13.5-18.0) gm/dL MCHC 31.0 L (32-36) g/dl RDW 16.7 H (11.5-14.0) % Immature Gran % (Auto) 2.90 H (0.001-0.429) % Immature Gran # (Auto) 0.40 H (0.000-0.0310) K/mm3 Neutrophils % 84.5 H (42-75.0) % Lymphocytes % 4.8 L (20-51) % Neutrophils # 11.8 H (1.3-6.0) K/mm3 Lymphocytes # 0.67 L (1.5-3.5) k/mm3 pCO2 55.9 H (35.0-48.0) mmHg pO2 50.6 L (83.0-108.0) mmHg HCO3 35.7 H (21.0-28.0) mmol/L Total CO2 37.4 H (19.0-24.0) mmol/L Base Excess 9.3 H (-2.0-3.0) mmol/L ABG O2 Sat (Measured) 85.8 L (94.0-98.0) % Sodium 144 H (132-142) mmol/L Plasma Sodium 144 H (130-142) mmol/L Carbon Dioxide 39.2 H (24-32.6) mmol/L Anion Gap 6.5 L (6.8-13.8) mmol/L BUN 28 H D (6-23) mg/dL BUN/Creatinine Ratio 26.4 H (9.0-21.6) B-Natriuretic Peptide 924 H (5-350) pg/mL Total Protein 6.0 L (6.2-8.2) gm/dL Albumin 2.8 L (3.4-5.0) gm/dl - Exam Constitutional: Present: Alert, Oriented x3, Cooperative ENT Exam: Present: hearing grossly normal Neck: Present: supple Respiratory: Present: decreased breath sounds, crackles, No wheezing Cardiovascular/Chest: Present: regular rate, rhythm, no JVD Abdomen: Present: Normal bowel sounds, soft, nontender, nondistended Extremity: Present: no calf tenderness, pedal edema, other - purplish towes- siginificantly improved Assessment/Plan - Problems/Diagnosis (1) Pneumonia Problem: Acute Qualifiers: Pneumonia type: due to unspecified organism Laterality: right Lung location: lower lobe of lung Qualified Code(s): J18.1 - Lobar pneumonia, unspecified organism Narrative: patient's CXR on 01/3019 at [facility] showed LLL pneumonia with parapneumonic pleural efusion. started on Levaquin x 10 days. followed up in the office and felt he was no better. CXR on this admission now shows right lower lobe opacities with trace pleural effusion- atelectasis vs pneumonia. he is on Merrem for possible aspiration pneumonia and his immunodeficiency status. continue IV antibiotics for at least 3 days from admission and possible discharge on oral antibiotics after that if continues to clinically get better. (2) Foot pain, bilateral Problem: Acute Narrative: was admitted with impression of resting ischemic pain. arterial doppler did show arterial disease recommending MRA. however with diuresis and elevation of lower extremities ( which is opposite if this was arterial)- color and swelling as improved- venous?. it is painful but better than on admission. did not start cilostazol as he is on anticoagulant. added gabapantin in case it is more if ischemic neuropathisc pain more than ischemic vascular pain. will start IVF for hydration for his MRA studies. (3) Cough Problem: Chronic Narrative: improved due to pneumonia (4) Shortness of breath Problem: Acute Narrative: improved due to pneumonia. (5) COPD (chronic obstructive pulmonary disease) Problem: Chronic Qualifiers: COPD type: emphysema Emphysema type: unspecified Qualified Code(s): J43.9 - Emphysema, unspecified Narrative: ABG showed hypoxemia and hypercarbia. on breathing treatmernt PRN, O2 to keep O2 sat equal or above 90 % (6) Thyroid dysfunction Problem: Acute Narrative: will talk to his oncologist/collector of internal revenue. (7) A-fib Problem: Chronic Qualifiers: Atrial fibrillation type: chronic Qualified Code(s): I48.2 - Chronic atrial fibrillation (8) Hyperlipidemia Problem: Chronic Qualifiers: (9) Hypertension Problem: Chronic Qualifiers: Hypertension type: essential hypertension Qualified Code(s): I10 - Essential (primary) hypertension (10) Polymyalgia rheumatica Problem: Chronic Narrative: will start tapering his prednisone on discharge (11) Squamous cell carcinoma of bronchus in left upper lobe Problem: Chronic Narrative: on CTX q 2 weeks.
[2019-03-04] MEDS ORDERED: predniSONE 20 MG TABLET PO SCH ×2 (09:00)
[2019-03-04] MEDS: LORATADINE 10 MG TABLET PO SCH (09:47)
[2019-03-04] MEDS: APIXABAN 5 MG TABLET PO SCH ×2 (09:47→20:18)
[2019-03-04] MEDS: TIOTROPIUM BROMIDE 5 CAP INHALER IH SCH (09:48)
[2019-03-04] MEDS: MULTIVITAMINS 1 CAP CAPSULE PO SCH (09:48)
[2019-03-04] MEDS: POTASSIUM CHLORIDE 20 MEQ TABLET.SA PO SCH (09:48)
[2019-03-04] MEDS: METOPROLOL TARTRATE 100 MG TABLET PO SCH ×2 (09:48→20:18)
[2019-03-04] MEDS: FUROSEMIDE 80 MG TABLET PO SCH (10:41)
[2019-03-04] MEDS: MEROPENEM 1 GM in NORMAL SALINE 100 ML IV SCH ×2 (10:42→23:10)
[2019-03-04] MEDS: NORMAL SALINE 1,000 ML IV PRN ×2 (11:21→20:15)
[2019-03-04] MEDS: ACETAMINOPHEN 325 MG TABLET PO PRN (15:19)
[2019-03-04] MEDS: ALBUTEROL SULFATE 2.5 MG/0.5 ML VIAL.NEB IH PRN (17:54)
[2019-03-05] MEDS: METHYLPREDNISOLONE SOD SUCC/PF 40 MG/ML VIAL IV SCH ×2 (01:52→07:10)
[2019-03-05] MEDS: GABAPENTIN 100 MG CAPSULE PO SCH ×5 (01:53→23:49)
[2019-03-05] MEDS: ALBUTEROL SULFATE/IPRATROPIUM 3 ML NEBU IH PRN (04:54)
[2019-03-05 05:49] LABS: Hematocrit 44.8 % (42.0-52.0); Hemoglobin 13.6 gm/dL (13.5-18.0); Mean Cell Volume 98.9 fl (78-100); Mean Corpuscular Hgb Conc 30.4 g/dl (32-36); Mean Platelet Volume 9.4 fl (8-11.3); Neutrophil # 14.5 K/mm3 (1.3-6.0); Neutrophil % 90.2 % (42-75.0); Platelet Count 217 K/mm3 (150-450); Red Blood Count 4.53 M/mm3 (4.7-6.0); Red Cell Distribution Width 17.1 % (11.5-14.0)
[2019-03-05] MEDS: FORMOTEROL FUMARATE 20 MCG/2 ML VIAL IH SCH ×2 (06:03→18:29)
[2019-03-05 06:07] LABS: Anion Gap 7.6 mmol/L (6.8-13.8); BUN/Creatinine Ratio 26.1 (9.0-21.6); Calcium * 9.2 mg/dL (7.9-10.9); Carbon Dioxide 37.2 mmol/L (24-32.6); Estimated Creat Clear 79.2; Potassium 3.8 mmol/L (3.4-4.6)
--- NOTE | 2019-03-05 08:40 | PN ---
Subjective - Date and Time Seen Date: 03/05/19 Time: 08:31 Subjective Narrative: Feels better todya. His feet are not as painful as on admission. Objective - Review of Systems Generalized/Overall Review: Denies: Fever EENTM: Denies: Blurred Vision Respiratory: Reports: Cough, Shortness of Breath Cardiac: Reports: Edema. Denies: Chest Pain, Palpitations Abdominal: Denies: Nausea, Vomiting Genitourinary Symptoms: Denies: Urgency, Frequency Musculoskeletal Complaints: Reports: Joint Pain Neurological: Denies: Headache Skin: Reports: Lesions - dry, Rash, Other - blackish discoloaration when his feet are on the floor - Vitals Vitals: Last Vital Signs Temp 36.5 C 03/05/19 06:49 Pulse 84 03/05/19 06:49 Resp 20 03/05/19 06:49 BP 137/84 03/05/19 06:49 Pulse Ox 90 L 03/05/19 06:49 - Abnormal Lab Findings Abnormal Lab Findings: Abnormal Lab Results 03/05/19 03/05/19 Range/Units 05:10 05:10 WBC 16.0 H (4.0-10.5) K/mm3 RBC 4.53 L (4.7-6.0) M/mm3 MCHC 30.4 L (32-36) g/dl RDW 17.1 H (11.5-14.0) % Immature Gran % (Auto) 3.10 H (0.001-0.429) % Immature Gran # (Auto) 0.50 H (0.000-0.0310) K/mm3 Neutrophils % 90.2 H (42-75.0) % Lymphocytes % 3.2 L (20-51) % Neutrophils # 14.5 H (1.3-6.0) K/mm3 Lymphocytes # 0.52 L (1.5-3.5) k/mm3 Sodium 146 H (132-142) mmol/L Plasma Sodium 146 H (130-142) mmol/L Carbon Dioxide 37.2 H (24-32.6) mmol/L BUN/Creatinine Ratio 26.1 H (9.0-21.6) Random Glucose 119 H D (70-110) mg/dL - Exam Constitutional: Present: Alert, Oriented x3, Cooperative ENT Exam: Present: hearing grossly normal Neck: Present: supple Respiratory: Present: decreased breath sounds, crackles, wheezing - occasional Cardiovascular/Chest: Present: no JVD, no murmur, irregularly irregular Abdomen: Present: Normal bowel sounds, soft, nontender, nondistended Extremity: Present: no calf tenderness, lower extremity edema Skin Exam: Present: other - hyperpigmented with purplish toes Assessment/Plan - Problems/Diagnosis (1) Pneumonia Problem: Acute Qualifiers: Pneumonia type: due to unspecified organism Laterality: right Lung location: lower lobe of lung Qualified Code(s): J18.1 - Lobar pneumonia, unspecified organism Narrative: day # 3 of IV antibiotics. will get a CXR in the morning.possible discharge . (2) Foot pain, bilateral Problem: Acute Narrative: PAD. b/l- improved. discussed about consult with vascular surgeon but due to his present condition , unlikely that he will be aggressive. discussed about adding cilostazole but he is on a NOAG which can increase his risk of bleeding. right now he says the pain is not bothering as much like before. (3) Cough Problem: Chronic (4) Shortness of breath Problem: Acute (5) COPD (chronic obstructive pulmonary disease) Problem: Chronic Qualifiers: COPD type: emphysema Emphysema type: unspecified Qualified Code(s): J43.9 - Emphysema, unspecified (6) Thyroid dysfunction Problem: Acute Narrative: called Dr. Cano but out of town. talked to Dr. Martino, who is covering for him. (7) A-fib Problem: Chronic Qualifiers: Atrial fibrillation type: chronic Qualified Code(s): I48.2 - Chronic atrial fibrillation (8) Hyperlipidemia Problem: Chronic Qualifiers: (9) Hypertension Problem: Chronic Qualifiers: Hypertension type: essential hypertension Qualified Code(s): I10 - Essential (primary) hypertension (10) Polymyalgia rheumatica Problem: Chronic Narrative: discussed about tapering his prednisone becasue of the many possible AE of oral steroids when I stop his IV solumedrol. he says right now the prednisone is the only thing that is keeping him feeling good and whenever the dose is decreased or he misses it he feels very bad with his joint pains and muscle pains and with his squamous cell cancer, he says who cares. he does not want to go down on the dose. 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
[2019-03-05] MEDS: DRONABINOL 2.5 MG PO SCH ×2 (09:15→20:06)
[2019-03-05] MEDS: TIOTROPIUM BROMIDE 5 CAP INHALER IH SCH (09:19)
[2019-03-05] MEDS: METOPROLOL TARTRATE 100 MG TABLET PO SCH ×2 (09:20→20:07)
[2019-03-05] MEDS: POTASSIUM CHLORIDE 20 MEQ TABLET.SA PO SCH (09:20)
[2019-03-05] MEDS: MULTIVITAMINS 1 CAP CAPSULE PO SCH (09:20)
[2019-03-05] MEDS: APIXABAN 5 MG TABLET PO SCH ×2 (09:20→20:07)
[2019-03-05] MEDS: predniSONE 20 MG TABLET PO SCH (09:21)
[2019-03-05] MEDS: LORATADINE 10 MG TABLET PO SCH (09:25)
[2019-03-05] MEDS: MEROPENEM 1 GM in NORMAL SALINE 100 ML IV SCH ×2 (10:50→22:54)
[2019-03-05] MEDS: FUROSEMIDE 80 MG TABLET PO SCH (10:50)
[2019-03-05] MEDS ORDERED: HEPARIN SOD.,PORCINE 100 UNITS/ML IV ONE (16:45)
[2019-03-05] MEDS: ACETAMINOPHEN 325 MG TABLET PO PRN ×2 (17:02→23:02)
[2019-03-05] MEDS: ALBUTEROL SULFATE 2.5 MG/0.5 ML VIAL.NEB IH PRN (18:30)
[2019-03-05] MEDS ORDERED: HEPARIN SOD.,PORCINE 100 UNITS/ML ONE (23:36)
[2019-03-06] MEDS: FORMOTEROL FUMARATE 20 MCG/2 ML VIAL IH SCH (06:03)
[2019-03-06 08:03] LABS: Hematocrit 44.9 % (42.0-52.0); Hemoglobin 13.7 gm/dL (13.5-18.0); Mean Cell Volume 98.5 fl (78-100); Mean Corpuscular Hgb Conc 30.5 g/dl (32-36); Mean Platelet Volume 9.6 fl (8-11.3); Neutrophil # 12.2 K/mm3 (1.3-6.0); Platelet Count 203 K/mm3 (150-450); Red Blood Count 4.56 M/mm3 (4.7-6.0); Red Cell Distribution Width 17.5 % (11.5-14.0); White Blood Count 14.7 K/mm3 (4.0-10.5)
[2019-03-06 08:21] LABS: Anion Gap 7.1 mmol/L (6.8-13.8); BUN/Creatinine Ratio 31.4 (9.0-21.6); Calcium * 9.1 mg/dL (7.9-10.9); Carbon Dioxide 38.7 mmol/L (24-32.6); Estimated Creat Clear 81.1; Potassium 3.8 mmol/L (3.4-4.6)
[2019-03-06] MEDS: GABAPENTIN 100 MG CAPSULE PO SCH (08:34)
[2019-03-06] MEDS: APIXABAN 5 MG TABLET PO SCH (08:35)
[2019-03-06] MEDS: DRONABINOL 2.5 MG PO SCH (08:35)
[2019-03-06] MEDS: LORATADINE 10 MG TABLET PO SCH (08:35)
[2019-03-06] MEDS: MULTIVITAMINS 1 CAP CAPSULE PO SCH (08:36)
[2019-03-06] MEDS: predniSONE 20 MG TABLET PO SCH (08:36)
[2019-03-06] MEDS: TIOTROPIUM BROMIDE 5 CAP INHALER IH SCH (08:36)
[2019-03-06] MEDS: POTASSIUM CHLORIDE 20 MEQ TABLET.SA PO SCH (08:36)
[2019-03-06] MEDS: METOPROLOL TARTRATE 100 MG TABLET PO SCH (08:36)
--- NOTE | 2019-03-06 09:02 | DS ---
(1) Pleural effusion Diagnosis(s): right Problem: Acute (2) Pneumonia Problem: Acute Qualifiers: Pneumonia type: due to unspecified organism Laterality: right Lung location: lower lobe of lung Qualified Code(s): J18.1 - Lobar pneumonia, unspecified organism (3) Foot pain, bilateral Diagnosis(s): PAD Problem: Acute (4) Cough Problem: Chronic (5) Shortness of breath Problem: Chronic (6) COPD (chronic obstructive pulmonary disease) Problem: Chronic Qualifiers: COPD type: emphysema Emphysema type: unspecified Qualified Code(s): J43.9 - Emphysema, unspecified (7) Thyroid dysfunction Problem: Acute (8) A-fib Problem: Chronic Qualifiers: Atrial fibrillation type: chronic Qualified Code(s): I48.2 - Chronic atrial fibrillation (9) Hyperlipidemia Problem: Chronic Qualifiers: (10) Hypertension Problem: Chronic Qualifiers: Hypertension type: essential hypertension Qualified Code(s): I10 - Essential (primary) hypertension (11) Polymyalgia rheumatica Problem: Chronic (12) 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 He finished his ATB he is no better and continues to get worse. The patients O2 is 87% while sitting in room. He says he continues to cough and brings out some phlegm but mostly clear. He says he is no better and his feet especially his right foot has been hurting him. He has more swelling of his legs despite doubling his lasix on MWF and continuing with his usual dose on all other days. He had left lower lobe pneumonia with parapneumonic pleural effusion on CXR done in [facility] on 02/19/2019 and I had advised him to be admitted for IV antibiotics because of his comorbidities and immunodeficient state ( he has squamous cell lung cancer on on immunotherapy) but he declined admission and just wanted to be treated on oral antibiotics as an outpatient because he had too many things to be done. His just from cancer. He agreed to be admitted this time and repeat CXR showed right basilar opacities atelactasis vs pneumonia, trace pleural effusion. He was started on IV meropenem, IV solumedorol and breathing treatments. His ABG showed hypoxemia and hypercarbia. His WBC count was 14 then went up to 16 and is down again to 14.7. His lasix was increased. His ischemic resting pain was wokrd up. He has PAD . Foot pain is better. His repat CXR shows worsening of his pleural effusion. It is likely that this is malignancy more than infection. We will schedule him a CTS or US guided thoracentes as an outpatient as we cannot do it now as he is on Eliquis and he is adamantly wanting to go home and does not want to wait for this in the hospital. Will stop his this 48 hours prior to procedure. He does not have to be bridged. He is scheduled to have several scans to be done in [facility] by his Oncologist/instructor flying this coming for his immunotherapy. Procedures Performed: none Results and Findings: Pending Mircobiology Results 03/03/19 11:26 Blood Blood Culture - Preliminary NO GROWTH AFTER 48 HOURS 03/03/19 10:45 Blood Blood Culture - Preliminary NO GROWTH AFTER 48 HOURS Lab Pending Results 03/03/19 10:05: WBC 14.0 H, RBC 4.39 L, Hgb 13.4 L, Hct 43.2, MCV 98.4, MCH 30.5, MCHC 31.0 L, RDW 16.7 H, Plt Count 232, MPV 9.1, Immature Gran % (Auto) 2.90 H, Immature Gran # (Auto) 0.40 H, Neutrophils % 84.5 H, Lymphocytes % 4.8 L, Monocytes % 6.9, Eosinophils % 0.3, Basophils % 0.6, Nucleated RBC % 0.0, Neutrophils # 11.8 H, Lymphocytes # 0.67 L, Monocytes # 1.0, Eosinophils # 0.0, Absolute Basophils 0.1 03/03/19 10:05: Sodium 144 H, Plasma Sodium 144 H, Potassium 3.7, Chloride 102, Carbon Dioxide 39.2 H, Anion Gap 6.5 L, BUN 28 H D, Creatinine 1.06, Est GFR (Non-Af Amer) 74, BUN/Creatinine Ratio 26.4 H, Random Glucose 90, Calcium 9.0, Calcium Adj for Albumin 9.6, Total Bilirubin 0.8, AST 25, ALT 30, Alkaline Phosphatase 103, Troponin I 0.025, B-Natriuretic Peptide 924 H, Total Protein 6.0 L, Albumin 2.8 L 03/03/19 10:50: pCO2 55.9 H, pO2 50.6 L, HCO3 35.7 H, Total CO2 37.4 H, Base Excess 9.3 H, ABG pH 7.42, ABG O2 Sat (Measured) 85.8 L 03/03/19 16:05: Troponin I 0.027 03/05/19 05:10: WBC 16.0 H, RBC 4.53 L, Hgb 13.6, Hct 44.8, MCV 98.9, MCH 30.0, MCHC 30.4 L, RDW 17.1 H, Plt Count 217, MPV 9.4, Immature Gran % (Auto) 3.10 H, Immature Gran # (Auto) 0.50 H, Neutrophils % 90.2 H, Lymphocytes % 3.2 L, Monocytes % 3.1, Eosinophils % 0.0, Basophils % 0.4, Nucleated RBC % 0.0, Neutrophils # 14.5 H, Lymphocytes # 0.52 L, Monocytes # 0.5, Eosinophils # 0.0, Absolute Basophils 0.1 03/05/19 05:10: Sodium 146 H, Plasma Sodium 146 H, Potassium 3.8, Chloride 105, Carbon Dioxide 37.2 H, Anion Gap 7.6, BUN 23, Creatinine 0.88, Est GFR (Non-Af Amer) 91 D, BUN/Creatinine Ratio 26.1 H, Random Glucose 119 H D, Calcium 9.2 03/06/19 07:12: WBC 14.7 H, RBC 4.56 L, Hgb 13.7, Hct 44.9, MCV 98.5, MCH 30.0, MCHC 30.5 L, RDW 17.5 H, Plt Count 203, MPV 9.6, Immature Gran % (Auto) 3.90 H, Immature Gran # (Auto) 0.57 H, Neutrophils % 83.0 H, Lymphocytes % 4.3 L, Monocytes % 8.3, Eosinophils % 0.0, Basophils % 0.5, Nucleated RBC % 0.0, Neutrophils # 12.2 H, Lymphocytes # 0.63 L, Monocytes # 1.2 H, Eosinophils # 0.0, Absolute Basophils 0.1 03/06/19 07:12: Sodium 146 H, Plasma Sodium 146 H, Potassium 3.8, Chloride 104, Carbon Dioxide 38.7 H, Anion Gap 7.1, BUN 27 H, Creatinine 0.86, Est GFR (Non-Af Amer) 94, BUN/Creatinine Ratio 31.4 H, Random Glucose 86, Calcium 9.1 Discharge Location: Home Disposition: Home self-care Condition: Poor Discharge Activity: Activity as tolerated Discharge Diet: Low salt Referrals: Cynthia Busby MD [Primary Care Provider] - Additional Patient Instructions (free text): Follow up with PCP in 1 week. Please schedule an outpatient US or CTS guided thoracentesis and send pleural fluid for TP, Albumin, LDH, glucose, WBC with differential count, grams stain, C & S, cytology for malignancy, save 1 tube for further studies. Do blood draw also for CMP with [facility] on the same day of the specimen being collected. Prescriptions (Any new or edited meds): Amox Tr/Potassium Clavulanate [Augmentin 875-125 Tablet] 875 mg PO Q12H #20 tab Gabapentin [Neurontin] 100 mg PO Q8H #90 capsule traMADol HCL [Ultram] 50 mg PO Q6H PRN #30 tab PRN Reason: Pain Complete Home Medications List: Complete Home Medication List: Acetaminophen [Tylenol] 500 - 1,000 mg PO Q6H PRN 05/11/16 fexofenadine 180 mg tablet 180 mg PO DAILY 05/05/18 multivitamin tablet 1 tab PO DAILY 05/05/18 albuterol sulfate HFA 90 mcg/actuation aerosol inhaler 2 puff IH .Q4-6H PRN #18 g 10/17/18 Metoprolol Tartrate [Lopressor] 100 mg PO BID 12/09/18 apixaban 5 mg tablet 5 mg PO BID #60 tab 12/09/18 Albuterol Sulfate/Ipratropium [Duoneb 2.5-0.5MG/3ML Soln] 3 ml INHALATION BID PRN #90 ml 12/10/18 Azithromycin 250 mg PO DAILY #36 tab 12/10/18 Dronabinol [Marinol] 2.5 mg PO BID #60 cap 12/10/18 Ondansetron HCl [Zofran] 4 mg PO QID PRN #20 tab 12/10/18 Umeclidinium Brm/Vilanterol Tr [Anoro Ellipta 62.5-25 Mcg INH] 1 ea INHALATION DAILY 12/10/18 fluticasone 50 mcg/actuation nasal spray,suspension 1 spray TAINA BID PRN #19.8 g 01/14/19 prednisone 20 mg tablet 20 mg PO DAILY #30 tab 02/20/19 potassium chloride ER 20 mEq tablet,extended release(part/cryst) 40 meq PO DAILY #180 tab 03/02/19 Furosemide 80 mg PO .MWF 03/03/19 Amox Tr/Potassium Clavulanate [Augmentin 875-125 Tablet] 875 mg PO Q12H #20 tab 03/06/19 Gabapentin [Neurontin] 100 mg PO Q8H #90 capsule 03/06/19 traMADol HCL [Ultram] 50 mg PO Q6H PRN #30 tab 03/06/19
[2019-03-06 10:38] VITALS: BP 127/84
== END 2019-03-06 10:39 | disposition home or self-care (01) | DRG 194 ==
LOC: MS 09:34
PROVIDERS: ADMIT Internal Medicine; ATTEND Internal Medicine
CPT/HCPCS: 36415; 36600; 71020; 71046; 73630; 74185; 80048; 80053; 82803; 83519; 83880; 84484; 85025; 87040; 87070; 93005; 93925; 94640; 94664; A9576; C8912

== ENCOUNTER 2019-04-01 14:49 | Observation (INO) ==
[2019-04-01 16:39] LABS: Hematocrit 37.9 % (42.0-52.0); Hemoglobin 11.8 gm/dL (13.5-18.0); Mean Cell Volume 98.2 fl (78-100); Mean Corpuscular Hemoglobin 30.6 pg (27-31); Mean Corpuscular Hgb Conc 31.1 g/dl (32-36); Mean Platelet Volume 9.8 fl (8-11.3); Neutrophil # 19.7 K/mm3 (1.3-6.0); Neutrophil % 91.7 % (42-75.0); Platelet Count 218 K/mm3 (150-450); Red Blood Count 3.86 M/mm3 (4.7-6.0); Red Cell Distribution Width 17.4 % (11.5-14.0); White Blood Count 21.6 K/mm3 (4.0-10.5)
[2019-04-01 16:54] LABS: Anion Gap 11.9 mmol/L (6.8-13.8); BUN/Creatinine Ratio 28.8 (9.0-21.6); Bilirubin, Total 0.7 mg/dL (0.0-1.1); CRP 5.1 mg/dL (0.0-0.9); Calcium * 9.5 mg/dL (7.9-10.9); Carbon Dioxide 34.7 mmol/L (24-32.6); Potassium 5.6 mmol/L (3.4-4.6); Total Protein 6.4 gm/dL (6.2-8.2)
[2019-04-01] MEDS ORDERED: SODIUM POLYSTYRENE SULFON/SORB 15 G/60 ML ORAL.SUSP PO ONE (17:49)
[2019-04-01] MEDS: NORMAL SALINE 1,000 ML IV PRN (18:04)
--- NOTE | 2019-04-01 18:14 | PN ---
Progess Note - Interim Date: 04/01/19 Time: 18:05 Narrative: 04/01/19 18:05 I saw and examined Taj medeiros on the [facility] floor on 04/01/2019 after he was admitted from my office because of generalized weakness, atrial fibrillation with rapid ventricular rate and a recent fall. I have reviewed his laboratory results and imaging tests. His potassium is 5.6, GFR of 51, BUN/creatinine ratio of 28.8, BNP of 820, troponin of 0.038, white blood cell count of 21.6, hemoglobin of 11.8, MCV of 98 neutrophils of 91.7%, ESR of 19, CRP of 5.1. We will hold his potassium supplement pills and bring down his potassium level with Kayexalate. His elevated white blood cell count likely is multifactorial secondary to an infection likely due to his peripheral arterial disease with necrosis of his toes, due to his malignancy involving left upper pulmonary lobe, recent trauma from fall with resultant multiple abrasions and lacerations. We discussed about the risk and benefits of his anticoagulation Eliquis for his recurrent atrial fibrillation with rapid ventricular response which was recently put on hold by vascular surgeon as he was started on aspirin and Plavix for his stenting for his peripheral arterial disease. He knows about the risk of an acute CVA or acute coronary blockage with A. fib. He knows that with the and anticoagulation and antiplatelet on board his risk for bleeding is also very high. He has decided to hold his Eliquis for now and stay on the aspirin and Plavix for now. Will refer patient to physical therapy. My clinic visit notes will serve as my history of present illness for this admission.
[2019-04-01] MEDS ORDERED: ACETAMINOPHEN 500 MG TABLET PO PRN (18:32)
[2019-04-01] MEDS ORDERED: ONDANSETRON HCL 4 MG TABLET PO PRN (18:32)
[2019-04-01] MEDS ORDERED: FLUTICASONE PROPIONATE 120 SPRAY INHALER NS PRN (18:32)
[2019-04-01] MEDS ORDERED: traMADol HCL 50 MG TABLET PO PRN (18:32)
[2019-04-01] MEDS ORDERED: ASPIRIN 81 MG TABLET.DR PO ONE (18:41)
[2019-04-01] MEDS ORDERED: ALBUTEROL SULFATE 2.5 MG/0.5 ML VIAL.NEB IH PRN (18:45)
[2019-04-01] MEDS: GABAPENTIN 100 MG CAPSULE PO SCH (19:23)
[2019-04-01] MEDS ORDERED: METOPROLOL TARTRATE 100 MG TABLET PO SCH (21:00)
[2019-04-01] MEDS ORDERED: oxyCODONE HCL/ACETAMINOPHEN 1 TAB TABLET PO PRN (21:17)
[2019-04-01] MEDS: AMOX TR/POTASSIUM CLAVULANATE 875 MG TABLET PO SCH (21:37)
[2019-04-01] MEDS ORDERED: oxyCODONE HCL/ACETAMINOPHEN 1 TAB TABLET PO ONE (23:55)
[2019-04-01] MEDS ORDERED: METOPROLOL TARTRATE 25 MG TABLET PO ONE (23:55)
[2019-04-02] MEDS: GABAPENTIN 100 MG CAPSULE PO SCH ×2 (03:24→10:35)
[2019-04-02] MEDS: NORMAL SALINE 1,000 ML IV PRN (03:25)
[2019-04-02] MEDS: oxyCODONE HCL/ACETAMINOPHEN 1 TAB TABLET PO PRN ×2 (04:16→09:16)
[2019-04-02] MEDS ORDERED: NON-FORMULARY 1 DOSE DOSE (Albuterol Sulfate 2.5 MG) Inhalation PRN (07:31)
[2019-04-02] MEDS ORDERED: AZITHROMYCIN 250 MG TABLET PO SCH ×2 (07:45→09:00)
[2019-04-02 08:18] LABS: Anion Gap 7.7 mmol/L (6.8-13.8); BUN/Creatinine Ratio 26.3 (9.0-21.6); Calcium * 8.4 mg/dL (7.9-10.9); Carbon Dioxide 37.3 mmol/L (24-32.6); Estimated Creat Clear 52.4
[2019-04-02 08:20] LABS: Hematocrit 33.9 % (42.0-52.0); Hemoglobin 10.4 gm/dL (13.5-18.0); Mean Cell Volume 100.6 fl (78-100); Mean Corpuscular Hemoglobin 30.9 pg (27-31); Mean Corpuscular Hgb Conc 30.7 g/dl (32-36); Mean Platelet Volume 9.8 fl (8-11.3); Platelet Count 155 K/mm3 (150-450); Red Blood Count 3.37 M/mm3 (4.7-6.0); Red Cell Distribution Width 17.6 % (11.5-14.0); White Blood Count 13.1 K/mm3 (4.0-10.5)
[2019-04-02 08:27] LABS: Total Cells Counted 100
[2019-04-02 08:28] LABS: Neutrophil % 85.3 % (42-75.0)
[2019-04-02 08:53] LABS: Atypical (Reactive) Lymph 3 % (0-2); Band 1 % (0-2.0); Lymphocyte 5 % (20-51); Monocyte 4 % (0-9); Neutrophil 87 % (42-75); Neutrophil # 11.4 K/mm3 (1.3-6.0)
[2019-04-02 08:58] LABS: Anisocytosis 1+; Hypochromia 2+; Platelet Estimate Normal (NORMAL)
[2019-04-02] MEDS ORDERED: predniSONE 10 MG TABLET PO SCH (09:00)
[2019-04-02] MEDS ORDERED: predniSONE 5 MG TABLET PO SCH ×2 (09:00)
[2019-04-02] MEDS ORDERED: METOPROLOL TARTRATE 100 MG, METOPROLOL TARTRATE 25 MG PO SCH ×2 (09:00)
[2019-04-02] MEDS ORDERED: CLOPIDOGREL BISULFATE 75 MG TABLET PO SCH (09:00)
[2019-04-02] MEDS ORDERED: FORMOTEROL FUMARATE 20 MCG/2 ML VIAL IH SCH (09:00)
[2019-04-02] MEDS ORDERED: AMOX TR/POTASSIUM CLAVULANATE 875 MG TABLET PO SCH (09:00)
[2019-04-02] MEDS ORDERED: FUROSEMIDE 40 MG TABLET PO SCH (09:00)
[2019-04-02] MEDS ORDERED: LORATADINE 10 MG TABLET PO SCH (09:00)
[2019-04-02] MEDS ORDERED: METOPROLOL TARTRATE 100 MG TABLET PO SCH ×2 (09:00→09:45)
[2019-04-02] MEDS ORDERED: TIOTROPIUM BROMIDE 5 CAP INHALER IH SCH (09:00)
[2019-04-02] MEDS ORDERED: MULTIVITAMINS 1 CAP CAPSULE PO SCH (09:00)
[2019-04-02] MEDS ORDERED: predniSONE 20 MG TABLET PO SCH (09:00)
[2019-04-02] MEDS: DRONABINOL 2.5 MG PO SCH (09:17)
[2019-04-02] MEDS: AMOX TR/POTASSIUM CLAVULANATE 875 MG TABLET PO SCH (09:20)
[2019-04-02] MEDS ORDERED: FUROSEMIDE 20 MG TABLET PO ONE (09:32)
--- NOTE | 2019-04-02 09:46 | DS ---
(1) Generalized weakness Problem: Acute (2) Fall Problem: Acute Qualifiers: Encounter type: sequela Qualified Code(s): W19.XXXS - Unspecified fall, sequela (3) Leukocytosis Problem: Acute Qualifiers: Leukocytosis type: other Qualified Code(s): D72.828 - Other elevated white blood cell count (4) Cough Problem: Chronic (5) Shortness of breath Problem: Chronic (6) PAD (peripheral artery disease) Problem: Chronic (7) Pleural effusion Problem: Chronic (8) A-fib Problem: Chronic Qualifiers: Atrial fibrillation type: chronic Qualified Code(s): I48.2 - Chronic atrial fibrillation (9) COPD (chronic obstructive pulmonary disease) Problem: Chronic Qualifiers: COPD type: emphysema Emphysema type: unspecified Qualified Code(s): J43.9 - Emphysema, unspecified (10) Hyperlipidemia Problem: Chronic Qualifiers: Hyperlipidemia type: pure hypercholesterolemia Qualified Code(s): E78.00 - Pure hypercholesterolemia, unspecified; E78.0 - Pure hypercholesterolemia (11) Hypertension Problem: Chronic Qualifiers: Hypertension type: essential hypertension Qualified Code(s): I10 - Essential (primary) hypertension (12) Polymyalgia rheumatica Problem: Chronic (13) 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 for respiratory failure. His heart rate was elevated and patient stated that it has been like that lately. He continues to have a cough. He had a fall at home which has left him with several skin tears for which he was seen in the ER for. His head CT scan was normal. He has been getting very weak lately and short of breath with activity. He is now using his oxygen almost 24 hours a day. He was supposed to see his oncologist/extension service agent today for his immunotherapy but felt that he was so weak to get it and id not go to see him. We admitted the patient for observation and further evaluation and treatment of his generalized weakness, atrial fibrillation with rapid ventricular rate and a recent fall. His potassium was 5.6, GFR of 51, BUN/creatinine ratio of 28.8, BNP of 820, troponin of 0.038, white blood cell count of 21.6, hemoglobin of 11.8, MCV of 98 neutrophils of 91.7%, ESR of 19, CRP of 5.1. We held his potassium supplement pills and gave him Kayexalate. His elevated white blood cell count likely is multifactorial secondary to an infection likely due to his peripheral arterial disease with necrosis of his toes, due to his malignancy involving left upper pulmonary lobe, recent trauma from fall with resultant multiple abrasions and lacerations and even might also be due to dehydration. We discussed about the risk and benefits of his anticoagulation Eliquis for his recurrent atrial fibrillation with rapid ventricular response which was recently put on hold by vascular surgeon as he was started on aspirin and Plavix for his stenting for his peripheral arterial disease. He knows about the risk of an acute CVA or acute coronary blockage with A. fib. He knows that with the and anticoagulation and antiplatelet on board his risk for bleeding is also very high. He has decided to hold his Eliquis for now and stay on the aspirin and Plavix for now. Will referred him to physical therapy. His tramadol and gabapentin did not alleviate pain at all. It improve with Percoset 2 tabs PO q 4 hours. His WBC this morning is 13.6 . With his pain control and an additional bump in his BBlocker his HR is in the 80's. he is feeling better and is eager to go home. He was told to follow up with his Foot doctor as his 4th anf 5ht toes may have to be amputated. We will also reduce his Lasix to 20 mg PO q daily and KCl to 10 meq PO q daily. Repeat BMP, CBC in 2 weeks. Procedures Performed: none Results and Findings: Lab Pending Results 04/01/19 16:25: WBC 21.6 H, RBC 3.86 L, Hgb 11.8 L, Hct 37.9 L, MCV 98.2, MCH 30.6, MCHC 31.1 L, RDW 17.4 H, Plt Count 218, MPV 9.8, Immature Gran % (Auto) 1.90 H, Immature Gran # (Auto) 0.41 H, Neutrophils % 91.7 H, Lymphocytes % 2.4 L, Monocytes % 3.8, Eosinophils % 0.0, Basophils % 0.2, Nucleated RBC % 0.0, Neutrophils # 19.7 H, Lymphocytes # 0.52 L, Monocytes # 0.8, Eosinophils # 0.0, Absolute Basophils 0.1 04/01/19 16:25: ESR 19 H 04/01/19 16:25: Sodium 141, Plasma Sodium 141, Potassium 5.6 H, Chloride 100, Carbon Dioxide 34.7 H, Anion Gap 11.9, BUN 42 H, Creatinine 1.46 H, Est GFR (Non-Af Amer) 51 L, BUN/Creatinine Ratio 28.8 H, Random Glucose 103, Calcium 9.5, Calcium Adj for Albumin 10.0, Total Bilirubin 0.7, AST 43, ALT 48, Alkaline Phosphatase 144, C-Reactive Prot, Quant 5.1 H, B-Natriuretic Peptide 827 H, Total Protein 6.4, Albumin 3.0 L 04/01/19 16:25: Troponin I 0.038 04/01/19 23:23: Troponin I 0.029 04/02/19 07:05: Peripheral Blood Smear Spec to path 04/02/19 08:00: WBC 13.1 H D, RBC 3.37 L, Hgb 10.4 L, Hct 33.9 L, MCV 100.6 H, M CH 30.9, MCHC 30.7 L, RDW 17.6 H, Plt Count 155, MPV 9.8, Immature Gran % (Auto) 2.10 H, Immature Gran # (Auto) 0.27 H, Neutrophils % 85.3 H, Neutrophils % (Manual) 87 H, Band Neuts % (Manual) 1, Lymphocytes % 5.3 L, Lymphocytes % (Manual) 5 L, Monocytes % 6.6, Monocytes % (Manual) 4, Eosinophils % 0.5, Basophils % 0.2, Nucleated RBC % 0.0, Neutrophils # 11.0 H, Neutrophils # (Manual) 11.4 H, Lymphocytes # 0.69 L, Lymphocytes # (Manual) 0.7 L, Monocytes # 0.9, Monocytes # (Manual) 0.5, Eosinophils # 0.1, Absolute Basophils 0.0, Atypic/Reactive Lymphs 3 H, Platelet Estimate Normal, Hypochromasia 2+, Anisocytosis 1+, Absolute Retic 0.1505, Percent Retic 4.6 H, Immature Retic Fraction 28.7 H, Retic Hgb Content 34.3 04/02/19 08:00: Sodium 143 H, Plasma Sodium 143 H, Potassium 4.0 D, Chloride 102, Carbon Dioxide 37.3 H, Anion Gap 7.7, BUN 35 H, Creatinine 1.33, Est GFR (Non-Af Amer) 57 L, BUN/Creatinine Ratio 26.3 H, Random Glucose 98, Calcium 8.4 Discharge Location: Home Disposition: Home self-care Condition: Stable Discharge Activity: Activity as tolerated Discharge Diet: Low salt Referrals: Cynthia Busby MD [Primary Care Provider] - Problem Oriented Discharge Instructions to Patient/Family: Fall Prevention in the Home, Jlsf-[id number] Additional Patient Instructions (free text): -Please make TCM appointment unless [facility] discharge, or if following up with outside provider. Thank you! Violeta @ [phone] or Bonnie at [phone]. Follow up with PCP iin 2 weeks. Prescriptions (Any new or edited meds): Furosemide 20 mg PO DAILY #90 tab Potassium Chloride [Klor-Con M10] 10 meq PO DAILY #30 tab.er.prt oxyCODONE HCL/ACETAMINOPHEN [Percocet 5 MG/325 MG] 2 tab PO Q4H PRN #60 tab PRN Reason: Moderate Pain (Pain Scale 4-6) predniSONE [Prednisone] 15 mg PO DAILY #60 tab Complete Home Medications List: Complete Home Medication List: Acetaminophen [Tylenol] 500 - 1,000 mg PO Q6H PRN 05/11/16 fexofenadine 180 mg tablet 180 mg PO DAILY 05/05/18 multivitamin tablet 1 tab PO DAILY 05/05/18 albuterol sulfate HFA 90 mcg/actuation aerosol inhaler 2 puff IH .Q4-6H PRN #18 g 10/17/18 Metoprolol Tartrate [Lopressor] 100 mg PO BID 12/09/18 Dronabinol [Marinol] 2.5 mg PO BID #60 cap 12/10/18 Ondansetron HCl [Zofran] 4 mg PO QID PRN #20 tab 12/10/18 Umeclidinium Brm/Vilanterol Tr [Anoro Ellipta 62.5-25 Mcg INH] 1 ea INHALATION DAILY 12/10/18 fluticasone 50 mcg/actuation nasal spray,suspension 1 spray TAINA BID PRN #19.8 g 01/14/19 Gabapentin [Neurontin] 100 mg PO Q8H #90 cap 06/14/19 Albuterol Sulfate 2.5 mg INHALATION Q6H PRN 04/01/19 Amox Tr/Potassium Clavulanate [Augmentin 875-125 Tablet] 875 mg PO Q12H 04/01/19 Azithromycin 250 mg PO .M,W,F 04/01/19 Clopidogrel Bisulfate [Plavix] 75 mg PO DAILY 04/01/19 Sulfamethoxazole-Tmp Susp 50 ml PO Q8H 04/01/19 Furosemide 20 mg PO DAILY #90 tab 04/02/19 Potassium Chloride [Klor-Con M10] 10 meq PO DAILY #30 tab.er.prt 04/02/19 oxyCODONE HCL/ACETAMINOPHEN [Percocet 5 MG/325 MG] 2 tab PO Q4H PRN #60 tab 04/02/19 predniSONE [Prednisone] 15 mg PO DAILY #60 tab 04/02/19
[2019-04-02] MEDS ORDERED: METOPROLOL TARTRATE 25 MG TABLET PO ONE (10:30)
--- NOTE | 2019-04-02 10:59 | PATHPSR ---
PHYSICIAN: Cynthia Busby MD LAB#: [id number] SPECIMEN DATE: 04/02/2019 CLINICAL INFORMATION: The patient is a 68-year-old man with history of of squamous cell carcinoma of left upper lobe who presented with a fall and weakness and was admitted to [facility]. Patient has infection and necrosis of toes due to peripheral artery disease. Peripheral review by pathologist is ordered due to elevated WBC of 21.6 K/mm3 on 04/01/2019. Normal B12 and folate 12/10/2018. CBC: WBC 13.1 K/mm3, hemoglobin 10.4 gm/dl, hematocrit 33.9 %, MCV is 30.9 fl, MCH is 30.9 pg, MCHC is 30.7 g/dl, Platelet count 155,000/mm. Manual differential: Neutrophils 87 %, bands 1 %, lymphocytes 5 %, monocytes 4 %, eosinophils 0 %, basophils 0 %, atypical reactive lymphocytes 3 %. RED BLOOD CELLS: 2+ hypochromia 1+ anisocytosis, borderline macrocytosis PLATELETS: No abnormalities WHITE BLOOD CELLS: Absolute neutrophilia with mild left shift DIAGNOSIS: PERIPHERAL BLOOD SMEAR, REVIEW BY PATHOLOGIST: -ABSOLUTE NEUTROPHILIA WITH SLIGHT LEFT SHIFT MOST CONSISTENT WITH A LEUKEMOID REACTION -MILD ANEMIA WITH MACROCYTIC INDEX COMMENT: The findings are most consistent with a leukemoid reaction due to this patient's known necrotic toes and trauma due to fall. The level has decreased from original 21.6K/ mm3 to 13 .1K/mm3 for this peripheral smear review. Might suggest a repeat B12 and folate as there is macrocytosis and anemia. No immature elements or primary hematopoietic malignancy is identified on our examination. The findings are communicated by FAX to Dr. Busby on 04/02/2019.
[2019-04-02 14:08] VITALS: BP 102/66
[2019-04-02] MEDS ORDERED: HEPARIN SOD.,PORCINE 100 UNITS/ML IV ONE (15:08)
[2019-04-03] MEDS ORDERED: FUROSEMIDE 80 MG TABLET PO SCH (09:00)
== END 2019-04-02 15:40 | disposition home or self-care (01) ==
LOC: CCFAL → MS 14:49
PROVIDERS: ADMIT Internal Medicine; ATTEND Internal Medicine
DX: D72.828 Other elevated white blood cell count; M35.3 Polymyalgia rheumatica; J43.9 Emphysema, unspecified; E78.00 Pure hypercholesterolemia, unspecified; C34.12 Malignant neoplasm of upper lobe, left bronchus or lung; R05 Cough; R53.1 Weakness; I10 Essential (primary) hypertension; I48.2 Chronic atrial fibrillation; I73.9 Peripheral vascular disease, unspecified; R06.02 Shortness of breath; J90 Pleural effusion, not elsewhere classified; W19.XXXA Unspecified fall, initial encounter
CPT/HCPCS: 36415; 71020; 71046; 80048; 80053; 83519; 83880; 84484; 85025; 85045; 85060; 85652; 86140; 87040; 93005; 96361; 96374; G0378; G0379

== ENCOUNTER 2019-04-26 11:52 | Inpatient (IN) ==
[2019-04-26 12:33] LABS: Hematocrit 24.8 % (42.0-52.0); Mean Corpuscular Hemoglobin 31.6 pg (27-31); Mean Corpuscular Hgb Conc 29.8 g/dl (32-36); Mean Platelet Volume 9.4 fl (8-11.3); Platelet Count 185 K/mm3 (150-450); Red Blood Count 2.34 M/mm3 (4.7-6.0); White Blood Count 18.2 K/mm3 (4.0-10.5)
[2019-04-26 12:38] LABS: Hemoglobin 7.4 gm/dL (13.5-18.0)
[2019-04-26 12:40] LABS: Total Cells Counted 100
[2019-04-26 12:43] LABS: Albumin * 2.3 gm/dl (3.4-5.0); Anion Gap 8.1 mmol/L (6.8-13.8); Bilirubin, Total 1.4 mg/dL (0.0-1.1); CRP 3.7 mg/dL (0.0-0.9); Ca. Corrected For Albumin 10.2 mg/dL (8.4-10.2); Calcium * 9.2 mg/dL (7.9-10.9); Potassium 4.1 mmol/L (3.4-4.6); Total Protein 4.7 gm/dL (6.2-8.2)
[2019-04-26 12:46] LABS: Band 1 % (0-2.0); Lymphocyte 2 % (20-51); Monocyte 2 % (0-9); Neutrophil 95 % (42-75); Neutrophil # 17.3 K/mm3 (1.3-6.0)
[2019-04-26 12:47] LABS: Platelet Estimate Normal (NORMAL); RBC Morphology Normal (NORMAL)
--- NOTE | 2019-04-26 14:51 | ERNOTE ---
Medical Problem HPI - Narrative Date of Service: 04/26/19 - General Chief Complaint: General Assessment Time Seen by Provider: 04/26/19 12:05 Source: patient, family Exam Limitations: no limitations - Immun/Allergies/Home Medications Immunizations: IMMUNIZATION HX Immunizations Up to Date Yes History of Influenza Vaccine No Hx Pneumococcal Vaccination No Allergies/Adverse Reactions: Allergies No Known Allergies Allergy (Verified 04/01/19 16:38) Home Medications: HOME MEDICATIONS Acetaminophen [Tylenol] 500 - 1,000 mg PO Q6H PRN 05/11/16 [Last Taken Unknown] fexofenadine 180 mg tablet 180 mg PO DAILY 05/05/18 [Last Taken 12/09/18 07:00] multivitamin tablet 1 tab PO DAILY 05/05/18 [Last Taken 04/01/19 09:00] albuterol sulfate HFA 90 mcg/actuation aerosol inhaler 2 puff IH .Q4-6H PRN #18 g 10/17/18 [Last Taken Unknown] Metoprolol Tartrate [Lopressor] 100 mg PO BID 12/09/18 [Last Taken 04/01/19] Ondansetron HCl [Zofran] 4 mg PO QID PRN #20 tab 12/10/18 [Last Taken Unknown] Umeclidinium Brm/Vilanterol Tr [Anoro Ellipta 62.5-25 Mcg INH] 1 ea INHALATION DAILY 12/10/18 [Last Taken 03/03/19] fluticasone propionate 50 mcg/actuation nasal spray,suspension 1 spray TAINA BID PRN #19.8 g 01/14/19 [Last Taken 03/03/19] Gabapentin [Neurontin] 100 mg PO Q8H #90 cap 03/06/19 [Last Taken 04/01/19] Albuterol Sulfate 2.5 mg INHALATION Q6H PRN 04/01/19 [Last Taken Unknown] Amox Tr/Potassium Clavulanate [Augmentin 875-125 Tablet] 875 mg PO Q12H 04/01/19 [Last Taken 04/01/19] Azithromycin 250 mg PO .M,W,F 04/01/19 [Last Taken Unknown] Clopidogrel Bisulfate [Plavix] 75 mg PO DAILY 04/01/19 [Last Taken Unknown] Sulfamethoxazole-Tmp Susp 50 ml PO Q8H 07/10/19 [Last Taken 04/01/19] Furosemide 20 mg PO DAILY #90 tab 04/02/19 [Last Taken Unknown] Potassium Chloride [Klor-Con M10] 10 meq PO DAILY #30 tab.er.prt 04/02/19 [Last Taken Unknown] oxyCODONE HCL/ACETAMINOPHEN [Percocet 5 MG/325 MG] 2 tab PO Q4H PRN #60 tab 04/02/19 [Last Taken Unknown] predniSONE [Prednisone] 15 mg PO DAILY #60 tab 04/02/19 [Last Taken Unknown] dronabinol 2.5 mg capsule 2.5 mg PO BID #60 cap 04/15/19 [Last Taken Unknown] - History of Present History Narrative: patient present per ambulance with c/o dyspnea and hx of terminal lung ca, recent right toe amputation Timing: constant, getting worse Modifying Factors - (Improves): Present: other - nothing Modifying Factors - (Worsens): Present: other - nothing Review of Systems - Review of Systems Constitutional: Present: See HPI, fever, weakness, fatigue, malaise EYE: Present: no symptoms reported ENT: Present: no symptoms reported Respiratory: Present: See HPI, shortness of breath, cough Cardiology: Present: no symptoms reported Gastrointestinal/Abdominal: Present: no symptoms reported Genitourinary: Present: no symptoms reported Musculoskeletal: Present: no symptoms reported Skin: Present: no symptoms reported Neurological: Present: no symptoms reported Endocrine: Present: no symptoms reported Hematologic/Lymphatic: Present: no symptoms reported Psych: Present: no symptoms reported All Other Systems: All systems neg except as marked Medical History (Updated 04/24/19 @ 00:00 by ) Hypertension (Chronic) 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) Onset Date: ~07/25/18 A-fib (Chronic) Pulmonary emphysema (Chronic) Afib (Chronic) with rapid ventricular response COPD (chronic obstructive pulmonary disease) (Chronic) Hyperlipidemia (Chronic) Anxiety and depression (Chronic) Atrial fibrillation Onset Date: Unknown COPD (chronic obstructive pulmonary disease) Onset Date: Unknown DJD (degenerative joint disease) of knee Onset Date: 12/19/12 Bilateral Erectile dysfunction Onset Date: Unknown Hyperlipidemia Onset Date: Unknown Osteoarthritis Onset Date: Unknown Surgical History: Surgical History (Updated 04/02/19 @ 09:46 by Cynthia Busby MD) H/O arthroscopic knee surgery Onset Date: 05/14/14 05/14/14[place] 05/30/[id number] medial meniscectomy H/O inguinal hernia repair Onset Date: 05/21/16 [place]-left w/Bard mesh plug and patch History of surgical removal of skin lesion Onset Date: Unknown [id number] History of tonsillectomy Onset Date: ~1960 Normal colonoscopy Onset Date: 01/29/05 [facility]-normal S/P arterial stent Family History: Family History (Updated 05/05/18 @ 12:00 by Violeta Gold RN) Brother Myocardial infarction, Onset Age: 50 Father Myocardial infarction, Onset Age: 74 Heart disease CAD Mother Cancer Leukemia Social History: (Last Reviewed 04/26/19 @ 12:00 by Ayde Delaney RN) Social History: Marital status: household members: spouse current occupational status: retired Highest education level completed: high school graduate Service: Yes branch: [employer] Tobacco: Smoking Status: Current some day smoker Alcohol: alcohol intake: current Personal Safety: victim of physical abuse: No victim of emotional abuse: No Physical Exam - Physical Exam General Appearance: Present: moderate distress, lethargic Head Exam: Present: normal inspection, no evidence of injury Eye Exam: Normal inspection: bilateral, PERRL: bilateral, EOMI: bilateral Ears, Nose, Throat: Present: normal ENT inspection, normal pharynx Neck: Present: normal inspection, nontender Respiratory: Present: respiratory distress, accessory muscle use Cardiovascular/Chest: Present: regular rate, rhythm, no murmur, normal peripheral pulses Gastrointestinal/Abdominal: Present: normal bowel sounds, nontender, nondistended, soft, no organomegaly Back Exam: Present: normal inspection, normal range of motion, no CVA tenderness, no vertebral tenderness Extremity Exam: Present: normal except - - right toes amputated foot dusky , wide spread purpura on lori abdoment and extrremities Neurological Exam: Present: alert, oriented, normal mood/affect, motor weakness, disoriented to person Skin Exam: Present: skin rash Lymphatic Exam: Present: no adenopathy Progress - Date and Time Seen: Date and Time: 04/26/19 14:47 condition unchanged, case discussed with family, they wish patient not to return to senior care case discussed with dr potter who accepts patient for admission to obseervation with potential to move to hospice, condition poor - Results and Orders Patient's Lab Results:: I have reviewed the patient's lab results. - Vital Signs Patient's Vital Signs:: I have reviewed the patient's vital signs. Vital Signs: Vital Signs 04/26/19 11:55 Respiratory Rate 26 H Blood Pressure 93/49 O2 Sat by Pulse Oximetry 96 - EKG EKG #1 EKG: atrial fibrillation EKG read: Interp. by me - X-Ray X-Ray #1 X-Ray: chest - worsenig of lung ca with possble superposed pneumonia Interpretation: Interp. by me - Progress/Reassessment Chief Complaint: General Assessment Progress:: Unchanged - Transfer of Care Expected Disposition: Admit Plan - Plan Plan: to admit to observation Departure Clinical Impression: Squamous cell carcinoma of bronchus in left upper lobe, COPD (chronic obstructive pulmonary disease), A-fib, Pneumonia - Departure Disposition: Short Term Hospital Inpatient Condition: Serious Referrals: Cynthia Busby MD [Primary Care Provider] -
[2019-04-26] MEDS ORDERED: cefTRIAXone SODIUM 1,000 MG/100 ML BAG IV ONE (14:52)
[2019-04-26] MEDS: NORMAL SALINE 1,000 ML IV PRN (15:29)
[2019-04-26] MEDS ORDERED: ONDANSETRON HCL 4 MG TABLET PO PRN (18:07)
[2019-04-26] MEDS ORDERED: HYDROcodone/ACETAMINOPHEN 1 EACH TABLET PO PRN (18:08)
[2019-04-26] MEDS ORDERED: FUROSEMIDE 10 MG/ML VIAL IV ONE (19:00)
[2019-04-26 20:46] LABS: Urine Bilirubin Negative (NEGATIVE); Urine Blood Negative /ul (NEGATIVE); Urine Ketone Negative (NEGATIVE); Urine Nitrite Negative (NEGATIVE); Urine Protein Negative (NEGATIVE); Urine Specific Gravity 1.015 SP.GR. (1.005-1.030); Urine Urobilinogen Normal (NORMAL); Urine pH 5.5 pH (5.0-7.0)
[2019-04-26 20:51] LABS: Urine Appearance Clear (CLEAR); Urine Color Yellow
[2019-04-26 20:54] LABS: Urine Bacteria TRACE; Urine RBC None Seen /hpf (0-5); Urine WBC None Seen /hpf (0-5)
[2019-04-26] MEDS: ALBUTEROL SULFATE 2.5 MG/0.5 ML VIAL.NEB IH PRN (22:45)
[2019-04-26] MEDS: LORazepam 0.5 MG TABLET PO SCH (22:58)
--- NOTE | 2019-04-26 23:46 | HP ---
Chief Complaint - Chief Complaint Date of Service: 04/26/19 Time of Service: 17:42 Chief Complaint: Shortness of breath, altered mental state History of Present Illness: Taj is a 68 yo male with squamous cell carcinoma, COPD, and atrial fibrillation. He has been progressively declining over the last month with weakness and increasing shortness of breath. He has had multiple wounds on his skin from breakdown due to decreased activity. He had a recent toe amputation due to progressive wound. Today he became lethargic with difficulty awakening and worse shortness of breath. He was brought to [facility] ER for evaluation. WBC elevated at 18k, chest xray shows pulmonary congestion and potential pneumonia. 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) Onset Date: ~07/25/18 A-fib (Chronic) Pulmonary emphysema (Chronic) Afib (Chronic) with rapid ventricular response COPD (chronic obstructive pulmonary disease) (Chronic) Hyperlipidemia (Chronic) Anxiety and depression (Chronic) Atrial fibrillation Onset Date: Unknown COPD (chronic obstructive pulmonary disease) Onset Date: Unknown DJD (degenerative joint disease) of knee Onset Date: 12/19/12 Bilateral Erectile dysfunction Onset Date: Unknown Hyperlipidemia Onset Date: Unknown Osteoarthritis Onset Date: Unknown Surgical History: Surgical History (Updated 04/02/19 @ 09:46 by Cynthia Busby MD) H/O arthroscopic knee surgery Onset Date: 05/14/14 05/14/14-[place] 05/30/[id number] medial meniscectomy H/O inguinal hernia repair Onset Date: 05/21/16 [facility]-left w/Bard mesh plug and patch History of surgical removal of skin lesion Onset Date: Unknown [id number] History of tonsillectomy Onset Date: ~1959 Normal colonoscopy Onset Date: 01/29/05 [facility]-normal S/P arterial stent Family History: Family History (Updated 05/05/18 @ 12:00 by Violeta Gold RN) Brother Myocardial infarction, Onset Age: 50 Father Myocardial infarction, Onset Age: 74 Heart disease CAD Mother Cancer Leukemia Social History: (Last Updated 04/26/19 @ 16:43 by Melva Pascual RN) Social History: longterm: Yes longterm comment: [facility] Marital status: household members: spouse caregiver/support person: Yes current occupational status: retired Highest education level completed: high school graduate Service: Yes branch: [employer] Tobacco: Smoking Status: Former smoker Alcohol: alcohol intake: former Personal Safety: victim of physical abuse: No victim of emotional abuse: No Review Of Systems (GEN) - Review of Systems Generalized/Overall Review: Present: Weakness. Absent: Chills, Fever EENTM: Present: No Symptoms Reported Respiratory: Present: Cough, Shortness of Breath Cardiac: Present: Edema. Absent: Chest Pain, Palpitations Abdominal: Absent: Nausea, Vomiting Genitourinary: Present: No Symptoms Reported Musculoskeletal: Present: No Symptoms Reported Neurological: Present: No Symptoms Reported Skin: Present: Other - multiple pressure ulcers Immunizations: IMMUNIZATION HX Immunizations Up to Date Yes History of Influenza Vaccine No Hx Pneumococcal Vaccination No Allergies/Adverse Reactions: Allergies Allergy/AdvReac Type Severity Reaction Status Date / Time No Known Allergies Allergy Verified 04/01/19 16:38 Home Medications: HOME MEDICATIONS Acetaminophen [Tylenol] 500 - 1,000 mg PO Q6H PRN 05/11/16 [Last Taken Unknown] albuterol sulfate HFA 90 mcg/actuation aerosol inhaler 2 puff IH .Q4-6H PRN #18 g 10/17/18 [Last Taken Unknown] Metoprolol Tartrate [Lopressor] 50 mg PO TID 12/09/18 [Last Taken 04/26/19] Ondansetron HCl [Zofran] 4 mg PO QID PRN #20 tab 12/10/18 [Last Taken Unknown] Umeclidinium Brm/Vilanterol Tr [Anoro Ellipta 62.5-25 Mcg INH] 1 ea INHALATION DAILY 12/10/18 [Last Taken 04/26/19] fluticasone propionate 50 mcg/actuation nasal spray,suspension 1 spray TAINA BID PRN #19.8 g 01/14/19 [Last Taken 03/03/19] Gabapentin [Neurontin] 100 mg PO Q8H #90 cap 03/06/19 [Last Taken 04/26/19] Albuterol Sulfate 2.5 mg INHALATION Q6H PRN 04/01/19 [Last Taken Unknown] Clopidogrel Bisulfate [Plavix] 75 mg PO DAILY 04/01/19 [Last Taken 04/26/19] dronabinol 2.5 mg capsule 2.5 mg PO BID #60 cap 04/15/19 [Last Taken 04/26/19] Amiodarone HCl 200 mg PO DAILY 04/26/19 [Last Taken 04/26/19] Apixaban [Eliquis] 5 mg PO BID 04/26/19 [Last Taken 04/26/19] Aspirin [Aspir-Low] 81 mg PO DAILY 04/26/19 [Last Taken 04/26/19] Bisacodyl [C-Lax Laxative] 5 mg PO DAILY PRN 04/26/19 [Last Taken Unknown] Furosemide 40 mg PO DAILY 04/26/19 [Last Taken 04/26/19] Furosemide [Lasix] 80 mg PO DAILY 04/26/19 [Last Taken 04/22/19] LORazepam [Ativan] 0.5 mg PO TID 04/26/19 [Last Taken 04/26/19] Levalbuterol HCl [Xopenex] 0.63 mg INHALATION TID 04/26/19 [Last Taken 04/26/19] Mucomyst 20% 3 ml INHALATION QID 04/26/19 [Last Taken 04/26/19] Multivitamin [One Daily Multivitamin] 1 ea PO DAILY 04/26/19 [Last Taken 04/26/19] Nicotine [Nicotine Patch] 1 ea TD DAILY 04/26/19 [Last Taken 04/26/19] Potassium Chloride [Klor-Con M10] 20 meq PO DAILY 04/26/19 [Last Taken 04/26/19] Prednisone 50 mg PO DAILY 04/26/19 [Last Taken 04/26/19] Sennosides [Senna Laxative] 2 tab PO DAILY 04/26/19 [Last Taken 04/26/19] Exam - Exam Vital Signs: Vital Signs - Last Taken Temp 36.2 C 04/26/19 18:20 Pulse 137 H 04/26/19 22:54 Resp 24 H 04/26/19 22:54 BP 120/64 04/26/19 18:22 Pulse Ox 91 L 04/26/19 22:45 Constitutional: Present: Lethargic Eye Exam: bilateral eye: normal inspection Respiratory: Present: crackles - diffuse Cardiovascular/Chest: Present: irregularly irregular Abdomen: Present: Normal bowel sounds, soft, nontender, nondistended Extremity: Present: lower extremity edema - 3+ Skin Exam: Present: other - multiple pressure ulcers on legs, butt Diagnostic Studies: Abnormal Lab Results 04/26/19 04/26/19 Range/Units 12:13 12:13 WBC 18.2 H (4.0-10.5) K/mm3 RBC 2.34 L (4.7-6.0) M/mm3 Hgb 7.4 L* D (13.5-18.0) gm/dL Hct 24.8 L (42.0-52.0) % MCV 106.0 H (78-100) fl MCH 31.6 H (27-31) pg MCHC 29.8 L (32-36) g/dl RDW 19.0 H (11.5-14.0) % Neutrophils % (Manual) 95 H (42-75) % Lymphocytes % (Manual) 2 L (20-51) % Neutrophils # (Manual) 17.3 H (1.3-6.0) K/mm3 Lymphocytes # (Manual) 0.4 L (1.5-3.5) k/mm3 Sodium 146 H (132-142) mmol/L Plasma Sodium 146 H (130-142) mmol/L Carbon Dioxide 41.0 H (24-32.6) mmol/L BUN 65 H D (6-23) mg/dL BUN/Creatinine Ratio 52.0 H (9.0-21.6) Total Bilirubin 1.4 H (0.0-1.1) mg/dL ALT 16 L (19-67) U/L C-Reactive Prot, Quant 3.7 H (0.0-0.9) mg/dL Total Protein 4.7 L (6.2-8.2) gm/dL Albumin 2.3 L (3.4-5.0) gm/dl Laboratory Results WBC 18.2 K/mm3 (4.0-10.5) H 04/26/19 12:13 RBC 2.34 M/mm3 (4.7-6.0) L 04/26/19 12:13 Hgb 7.4 gm/dL (13.5-18.0) L* D 04/26/19 12:13 Hct 24.8 % (42.0-52.0) L 04/26/19 12:13 MCV 106.0 fl (78-100) H 04/26/19 12:13 MCH 31.6 pg (27-31) H 04/26/19 12:13 MCHC 29.8 g/dl (32-36) L 04/26/19 12:13 RDW 19.0 % (11.5-14.0) H 04/26/19 12:13 Plt Count 185 K/mm3 (150-450) 04/26/19 12:13 MPV 9.4 fl (8-11.3) 04/26/19 12:13 95 % (42-75) H 04/26/19 12:13 Band Neuts % (Manual) 1 % (0-2.0) 04/26/19 12:13 2 % (20-51) L 04/26/19 12:13 2 % (0-9) 04/26/19 12:13 17.3 K/mm3 (1.3-6.0) H 04/26/19 12:13 0.4 k/mm3 (1.5-3.5) L 04/26/19 12:13 0.4 k/mm3 (0.0-1.0) 04/26/19 12:13 Normal (NORMAL) 04/26/19 12:13 RBC Morphology Normal (NORMAL) 04/26/19 12:13 Sodium 146 mmol/L (132-142) H 04/26/19 12:13 146 mmol/L (130-142) H 04/26/19 12:13 Potassium 4.1 mmol/L (3.4-4.6) 04/26/19 12:13 Chloride 101 mmol/L (97-106) 04/26/19 12:13 Carbon Dioxide 41.0 mmol/L (24-32.6) H 04/26/19 12:13 8.1 mmol/L (6.8-13.8) 04/26/19 12:13 BUN 65 mg/dL (6-23) H D 04/26/19 12:13 1.25 mg/dL (0.4-1.4) 04/26/19 12:13 Est GFR (Non-Af Amer) 61 mL/min (60-130) 04/26/19 12:13 52.0 (9.0-21.6) H 04/26/19 12:13 108 mg/dL (70-110) 04/26/19 12:13 0.9 mmol/L (0.4-2.0) 04/26/19 12:13 Calcium 9.2 mg/dL (7.9-10.9) 04/26/19 12:13 Calcium Adj for Albumin 10.2 mg/dL (8.4-10.2) 04/26/19 12:13 1.4 mg/dL (0.0-1.1) H 04/26/19 12:13 AST 24 U/L (0-48) 04/26/19 12:13 ALT 16 U/L (19-67) L 04/26/19 12:13 89 U/L (50-170) 04/26/19 12:13 C-Reactive Prot, Quant 3.7 mg/dL (0.0-0.9) H 04/26/19 12:13 4.7 gm/dL (6.2-8.2) L 04/26/19 12:13 2.3 gm/dl (3.4-5.0) L 04/26/19 12:13 Yellow 04/26/19 20:30 Clear (CLEAR) 04/26/19 20:30 5.5 pH (5.0-7.0) 04/26/19 20:30 Ur Specific Kingsley 1.015 SP.GR. (1.005-1.030) 04/26/19 20:30 Negative mg/dL (NEGATIVE) 04/26/19 20:30 Negative mg/dL (NEGATIVE) 04/26/19 20:30 Negative mg/dL (NEGATIVE) 04/26/19 20:30 Negative /ul (NEGATIVE) 04/26/19 20:30 Negative (NEGATIVE) 04/26/19 20:30 Negative mg/dl (NEGATIVE) 04/26/19 20:30 Normal EU/dl (NORMAL) 04/26/19 20:30 Ur Leukocyte Esterase Negative /ul (NEGATIVE) 04/26/19 20:30 None seen /hpf (0-5) 04/26/19 20:30 None seen /hpf (0-5) 04/26/19 20:30 Ur Epithelial Cells None seen /hpf (0-5) 04/26/19 20:30 Trace (NONE) 04/26/19 20:30 Culture to follow 04/26/19 20:30 Assessment/Plan - Narrative Narrative: Taj is a 68 yo male with declining health from known lung cancer and is currently in acute on chronic diastolic congestive heart failure with also possible right middle lobe pneumonia. He has not been eating or drinking appropriately and is also intravascularily depleted. He is currently getting NS at 125ml/hr. I will decrease his rate to 70ml/hr to hydrate but not further his volume overload. I will also simultaneously diurese with Lasix 80mg IV. He was already given antibiotics in the ER for possible pneumonia. Due to his decreased mentation it is possible that he could have aspirated. Due to his declining chronic conditions I suspect his life expectancy is less than 6 months and likely closer to days or weeks due to lung cancer, CHF, progressive weakness, and progressive malnutrition from decreased appetite. Family is considering hospice but would like to speak to the patient's primary care provider, Dr. Busby, before making that decision. I will continue current treatment until family decides for or against hospice. - Assessment/Plan (1) Acute on chronic diastolic (congestive) heart failure Problem: Acute (2) Pneumonia Problem: Acute Qualifiers: Pneumonia type: aspiration pneumonia Laterality: right Lung location: middle lobe of lung (3) Squamous cell carcinoma of bronchus in left upper lobe Problem: Chronic (4) A-fib Problem: Chronic Qualifiers:
[2019-04-27] MEDS: NORMAL SALINE 1,000 ML IV PRN (03:20)
[2019-04-27] MEDS: ALBUTEROL SULFATE 2.5 MG/0.5 ML VIAL.NEB IH PRN ×3 (06:10→21:11)
[2019-04-27] MEDS: LORazepam 0.5 MG TABLET PO SCH ×3 (08:31→17:48)
[2019-04-27] MEDS ORDERED: FUROSEMIDE 10 MG/ML VIAL IV ONE ×2 (08:43→16:07)
--- NOTE | 2019-04-27 08:48 | PN ---
Progess Note - Interim Date: 04/27/19 Time: 08:46 Narrative: 04/27/19 08:46 His SOB and AMS are likely due to multifactorial etiologies- likely progression of his squamous lung cancer having not received his maintenance CTX for the last few months, progression of COPD to end stage, CHF, Anemia, and possible Pneumonia underneath his pleural effusions causing hypoxemia as well cerebral hypoxia/PND/orthopnea. Discussed case with patient and son- they would like hospice evaluation. will refer to Hospice.
[2019-04-27] MEDS ORDERED: LORazepam 0.5 MG TABLET PO SCH (09:00)
[2019-04-27] MEDS ORDERED: METOPROLOL TARTRATE 50 MG TABLET PO ONE (11:08)
[2019-04-27] MEDS ORDERED: ALBUTEROL SULFATE 2.5 MG/0.5 ML VIAL.NEB IH PRN (11:08)
[2019-04-27] MEDS ORDERED: FLUTICASONE PROPIONATE 120 SPRAY INHALER NS PRN (11:08)
[2019-04-27] MEDS ORDERED: NON-FORMULARY 1 DOSE DOSE (Albuterol Sulfate 2.5 MG) Inhalation PRN (11:08)
[2019-04-27] MEDS ORDERED: ACETAMINOPHEN 500 MG TABLET PO PRN (11:08)
[2019-04-27] MEDS ORDERED: BISACODYL 5 MG TABLET.DR PO PRN (11:08)
[2019-04-27] MEDS: GABAPENTIN 100 MG CAPSULE PO SCH ×2 (11:56→22:24)
[2019-04-27] MEDS: METOPROLOL TARTRATE 100 MG TABLET PO SCH ×2 (12:07→17:52)
[2019-04-27] MEDS ORDERED: LEVALBUTEROL HCL 0.63 MG/3 ML AMPUL IH SCH (13:00)
[2019-04-27] MEDS: ACETYLCYSTEINE 200 MG/ML VIAL IH SCH ×2 (14:05→18:08)
--- NOTE | 2019-04-27 16:02 | PN ---
Subjective - Date and Time Seen Date: 04/27/19 Time: 15:53 Subjective Narrative: Patient is visibly SOB. Discussed with with son about his his decline in clinical condition and performance level. they agree with hospice evaluation. Objective - Review of Systems Generalized/Overall Review: Reports: Weakness. Denies: Chills, Fever EENTM: Denies: Blurred Vision Respiratory: Reports: Cough, Shortness of Breath, Wheezing Cardiac: Reports: Edema, Palpitations. Denies: Chest Pain Abdominal: Denies: Nausea, Vomiting Genitourinary Symptoms: Denies: Urgency, Frequency Musculoskeletal Complaints: Reports: Joint Pain, Back Pain Neurological: Denies: Headache Skin: Reports: Change in Color, Bruising Endocrine: Reports: No Symptoms Reported Misc: All systems neg except as marked - Vitals Vitals: Last Vital Signs Temp 35.7 C L 04/27/19 15:15 Pulse 103 H 04/27/19 15:15 Resp 20 04/27/19 15:15 BP 102/57 04/27/19 15:15 Pulse Ox 100 04/27/19 15:15 - Abnormal Lab Findings Abnormal Lab Findings: Abnormal Lab Results 04/26/19 Range/Units 12:13 B-Natriuretic Peptide 1680 H (5-350) pg/mL - Exam Constitutional: Present: Alert - AAO x 2- intermitent, Cooperative, Moderate distress, Looks Older than stated age ENT Exam: Present: hearing grossly normal Neck: Present: supple Respiratory: Present: decreased breath sounds, crackles, rales, wheezing Cardiovascular/Chest: Present: JVD, tachycardia, irregularly irregular Abdomen: Present: Normal bowel sounds, soft, nontender, nondistended Extremity: Present: no calf tenderness, pedal edema Neurologic: Present: no motor/sensory deficits, alert - AAO x 2, depressed aff ect Assessment/Plan Plan Narrative: We will continue with IV diuresis, IV antibiotics, breathing treatments. We will transfer him to acute status. Hospice has been consulted. - Problems/Diagnosis (1) Shortness of breath Problem: Acute (2) Acute on chronic diastolic (congestive) heart failure Problem: Acute (3) Pneumonia Problem: Suspected Qualifiers: (4) A-fib Problem: Chronic Qualifiers: Atrial fibrillation type: chronic (5) COPD (chronic obstructive pulmonary disease) Problem: Chronic Qualifiers: COPD type: COPD with acute exacerbation Qualified Code(s): J44.1 - Chronic obstructive pulmonary disease with (acute) exacerbation (6) Squamous cell carcinoma of bronchus in left upper lobe Problem: Chronic (7) Generalized weakness Problem: Acute (8) Anxiety and depression Problem: Chronic (9) Hyperlipidemia Problem: Chronic Qualifiers: Hyperlipidemia type: pure hypercholesterolemia Qualified Code(s): E78.00 - Pure hypercholesterolemia, unspecified; E78.0 - Pure hypercholesterolemia (10) Hypertension Problem: Chronic Qualifiers: Hypertension type: essential hypertension Qualified Code(s): I10 - Essential (primary) hypertension (11) PAD (peripheral artery disease) Problem: Chronic (12) Polymyalgia rheumatica Problem: Chronic
[2019-04-27] MEDS: METHYLPREDNISOLONE SOD SUCC/PF 40 MG/ML VIAL IV SCH ×2 (16:26→22:44)
[2019-04-27] MEDS: LEVALBUTEROL HCL 0.63 MG/3 ML AMPUL IH SCH (18:07)
[2019-04-27] MEDS: APIXABAN 5 MG TABLET PO SCH (22:24)
[2019-04-27] MEDS: LORazepam 1 MG TABLET PO SCH (22:25)
[2019-04-27] MEDS: MORPHINE SULFATE 4 MG/ML SYRG IV PRN (22:25)
[2019-04-28] MEDS ORDERED: METHYLPREDNISOLONE SOD SUCC/PF 125 MG/2 ML VIAL ONE (03:58)
[2019-04-28] MEDS: GABAPENTIN 100 MG CAPSULE PO SCH (04:37)
[2019-04-28] MEDS: METHYLPREDNISOLONE SOD SUCC/PF 40 MG/ML VIAL IV SCH (04:44)
[2019-04-28] MEDS: ACETYLCYSTEINE 200 MG/ML VIAL IH SCH (06:04)
[2019-04-28] MEDS: LEVALBUTEROL HCL 0.63 MG/3 ML AMPUL IH SCH (06:08)
[2019-04-28] MEDS: MORPHINE SULFATE 4 MG/ML SYRG IV PRN (07:17)
[2019-04-28] MEDS ORDERED: NICOTINE 14 MG PATC TD SCH (09:00)
[2019-04-28] MEDS ORDERED: FORMOTEROL FUMARATE 20 MCG/2 ML VIAL IH SCH (09:00)
[2019-04-28] MEDS ORDERED: CLOPIDOGREL BISULFATE 75 MG TABLET PO SCH (09:00)
[2019-04-28] MEDS ORDERED: MULTIVITAMINS 1 CAP CAPSULE PO SCH (09:00)
[2019-04-28] MEDS ORDERED: TIOTROPIUM BROMIDE 5 CAP INHALER IH SCH (09:00)
[2019-04-28] MEDS ORDERED: ASPIRIN 81 MG TABLET.DR PO SCH (09:00)
[2019-04-28] MEDS ORDERED: POTASSIUM CHLORIDE 20 MEQ TABLET.SA PO SCH (09:00)
[2019-04-28] MEDS ORDERED: AMIODARONE HCL 200 MG TABLET PO SCH (09:00)
[2019-04-28] MEDS ORDERED: ONDANSETRON HCL/PF 2 MG/ML VIAL IV PRN (09:31)
[2019-04-28] MEDS ORDERED: CODEINE PHOSPHATE/GUAIFENESIN 5 ML UDC PO PRN (09:31)
[2019-04-28] MEDS ORDERED: BISACODYL 10 MG SUPP.RECT RC PRN (09:31)
[2019-04-28] MEDS ORDERED: POLYVINYL ALCOHOL 150 DROP BTL EACHEYE PRN (09:31)
[2019-04-28] MEDS ORDERED: ACETAMINOPHEN 325 MG TABLET PO PRN (09:31)
[2019-04-28] MEDS: LORazepam 1 MG TABLET PO SCH (09:35)
[2019-04-28] MEDS: APIXABAN 5 MG TABLET PO SCH (09:35)
[2019-04-28] MEDS: METOPROLOL TARTRATE 100 MG TABLET PO SCH (09:35)
[2019-04-28] MEDS: SENNOSIDES 8.6 MG TABLET PO SCH (09:35)
[2019-04-28] MEDS: LORazepam 0.5 MG TABLET PO SCH (09:35)
[2019-04-28] MEDS: MORPHINE SULFATE 10 MG/ML SYRG IV SCH ×6 (10:18→21:24)
[2019-04-28] MEDS: MORPHINE SULFATE 10 MG/0.5 ML SYRINGE PO PRN ×3 (10:19→17:30)
[2019-04-28] MEDS: ATROPINE SULFATE 50 DROP BTL SL PRN ×3 (10:19→21:21)
[2019-04-28] MEDS: LORazepam 2 MG/ML DISP.SYRIN IV SCH ×7 (10:25→21:24)
[2019-04-28 10:36] VITALS: BP 120/72
--- NOTE | 2019-04-28 10:36 | PN ---
Subjective - Date and Time Seen Date: 04/28/19 Time: 10:30 Subjective Narrative: Had acute cardiorespiratory distress last night and had to be put on BipAp. Patient is sleeping now . Talked to Aubrey , his son- he wants to just keep him comfortable as he has suffered with this for a long time now. He wants to stop everything except for comfort care medications. He knows that as we increase his comfort care medications that it can cause further cardiorespiratory depression. Objective - Review of Systems Misc: All systems neg except as marked - unable to obtain - Vitals Vitals: Last Vital Signs Temp 36.4 C 04/28/19 06:20 Pulse 109 H 04/28/19 07:56 Resp 16 04/28/19 06:32 BP 92/64 04/28/19 06:20 Pulse Ox 100 04/28/19 07:28 - Exam Constitutional: Present: Other - sleeping and iI did not wake him up, Elderly ENT Exam: Present: other - not examined Neck: Present: supple Respiratory: Present: decreased breath sounds, crackles, rales Cardiovascular/Chest: Present: no murmur, JVD, irregularly irregular Abdomen: Present: Normal bowel sounds, soft, nontender, nondistended Extremity: Present: no calf tenderness, lower extremity edema Assessment/Plan Plan Narrative: We will stop his medications and will keep him on comfort care. - Problems/Diagnosis (1) Shortness of breath Problem: Acute (2) Acute on chronic diastolic (congestive) heart failure Problem: Acute (3) Pneumonia Problem: Suspected Qualifiers: (4) A-fib Problem: Chronic Qualifiers: Atrial fibrillation type: chronic (5) COPD (chronic obstructive pulmonary disease) Problem: Chronic Qualifiers: COPD type: COPD with acute exacerbation Qualified Code(s): J44.1 - Chronic obstructive pulmonary disease with (acute) exacerbation (6) Squamous cell carcinoma of bronchus in left upper lobe Problem: Chronic (7) Generalized weakness Problem: Acute (8) Anxiety and depression Problem: Chronic (9) Hyperlipidemia Problem: Chronic Qualifiers: Hyperlipidemia type: pure hypercholesterolemia Qualified Code(s): E78.00 - Pure hypercholesterolemia, unspecified; E78.0 - Pure hypercholesterolemia (10) Hypertension Problem: Chronic Qualifiers: Hypertension type: essential hypertension Qualified Code(s): I10 - Essential (primary) hypertension (11) PAD (peripheral artery disease) Problem: Chronic (12) Polymyalgia rheumatica Problem: Chronic
[2019-04-29] MEDS: MORPHINE SULFATE 10 MG/ML SYRG IV SCH ×6 (01:25→09:51)
[2019-04-29] MEDS: LORazepam 2 MG/ML DISP.SYRIN IV SCH ×6 (01:26→09:51)
[2019-04-29] MEDS: ATROPINE SULFATE 50 DROP BTL SL PRN ×3 (02:30→09:52)
--- NOTE | 2019-04-29 08:00 | PN ---
Progess Note - Interim Date: 04/29/19 Time: 07:57 Narrative: 04/29/19 07:57 Patient is nonresponsive, RR 8 , BP 75/42, 89% 0n 3 L, T 36.3. will hold his transfer to acute hospice care in [facility] as patient is near his end. Son, Aubrey , prefers him to stay here.
[2019-04-29] MEDS: SENNOSIDES 8.6 MG TABLET PO SCH (08:29)
--- NOTE | 2019-04-29 11:07 | DS ---
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 He was progressively declining over the last month with weakness and increasing shortness of breath. He has had multiple wounds on his skin from breakdown due to decreased activity. He had a recent toe amputation due to progressive wound. On the day of admission,he became lethargic with difficulty awakening and worse shortness of breath. He was brought to [facility] ER for evaluation. WBC elevated at 18k, chest xray shows pulmonary congestion and potential pneumonia. EKG showed AFib with RVR. BNP was elevated. He was started on IV lasix, IV antibiotic, breathing treatments , IV solumedrol. We got Hospice consult. He started having more acute cardiorespiratory distress and had to be on BiPap. After talking with the son about his declining clinical status, he said that his father has suffered a long time and wants everything discontinued and keep only comfort care medications. He was going to be transferred to acute hospice care in [place] this morning but his clinical condition deteriorated further and that got cancelled . He at 10:30 a.m. Procedures Performed: none - Additional Data Confirmation of as documented by pronouncing clinician: no pulse, no respirations, no heart sounds, pupils fixed and dilated Family: at bedside Additional persons at bedside: other - none Practitioner(Attending/PCP) notified: Yes Attending physician: Cynthia Busby Was code activated: No Autopsy requested: No Card Doffer notified: No Organ Bank notified: Yes Advance Directives: Yes Hospice patient: No
== END 2019-04-29 10:30 | disposition expired | DRG 180 ==
LOC: ER 11:52 → MS 11:52
PROVIDERS: ADMIT Family Medicine; ATTEND Internal Medicine
DX: F17.210 Nicotine dependence, cigarettes, uncomplicated; M35.3 Polymyalgia rheumatica; R53.1 Weakness; D64.9 Anemia, unspecified; E78.5 Hyperlipidemia, unspecified; I11.0 Hypertensive heart disease with heart failure; F41.8 Other specified anxiety disorders; Z89.421 Acquired absence of other right toe(s); I73.9 Peripheral vascular disease, unspecified; J44.9 Chronic obstructive pulmonary disease, unspecified; R06.03 Acute respiratory distress; C34.02 Malignant neoplasm of left main bronchus; I50.33 Acute on chronic diastolic (congestive) heart failure; I48.2 Chronic atrial fibrillation; J69.0 Pneumonitis due to inhalation of food and vomit
CPT/HCPCS: 36415; 71020; 71046; 80053; 81001; 83519; 83605; 83880; 84484; 85025; 86140; 87040; 87081; 87086; 93005; 94640; 94660; 94664; 96361; 96365; 96366; 96375; 99284; G0378